=== PATIENT | male | born 1935 | race Caucasian/White ===

== ENCOUNTER 2020-04-05 05:31 | Emergency (ER) | payer MEDICARE, SELFPAY ==
--- NOTE | ~2020-04-05 | XR_ITS ---
XR chest 1V portable DATE: 04/05/2020 06:20 INDICATION: Shortness of breath TECHNIQUE: Portable AP views on 04/05/2020 at 0619 hours COMPARISON: 12/05/2019 AP and lateral chest 11/28/2019 CT chest FINDINGS: Status post sternotomy/coronary artery bypass graft surgery. Heart size is within normal ra nge. Pulmonary artery prominence is noted, best demonstrated on the left, consistent with pulmonary h ypertension. The lungs are moderately hyperinflated but clear of infiltrate or consolidation. No pleural effusion or pulmonary vascular congestion or pneumothorax is evident. Diffuse osteopenia. Chronic fracture deformity of a lower thoracic vertebral body, T11. IMPRESSION: Pulmonary hypertension Status post sternotomy/CABG Bilateral hyperinflation; no active pulmonary disease Reviewed, dictated and finalized at location [facility].
[2020-04-05 05:35] VITALS: BP 158/61; PULSE 75; RESP 20; TEMP 36.3; O2SAT 98
--- NOTE | 2020-04-05 05:40 | ED.SOB ---
HPI - SOB/Dyspnea General Chief Complaint: Shortness of Breath/Dyspnea Stated Complaint: SOB Time Seen by Provider: 04/05/20 05:40 History of Present Illness HPI Narrative: Awoke from sleep early this morning feeling very short of breath. His gave him a breathing treatment and symptoms improved. He is currently being treated for aspiration pneumonia. No fever, chest pain. Related Data Home Medications Medication Instructions Recorded Confirmed Centrum Silver Ultra Men's 1 tablet PO DAILY 11/25/19 11/25/19 PreserVision Lutein 1 cap PO BID 11/25/19 11/25/19 aspirin 81 mg PO DAILY 11/25/19 11/25/19 atorvastatin 20 mg PO HS 11/25/19 11/25/19 azelastine 2 spray INTRANASAL Q12H 11/25/19 11/25/19 benzonatate 100 mg PO TID PRN 11/25/19 11/25/19 brinzolamide 1 drp OPHTHALMIC (EYE) HS 11/25/19 11/25/19 bupropion HCl 150 mg PO BID 11/25/19 11/25/19 diphenhydramine-acetaminophen 1 tablet PO HS 11/25/19 11/25/19 [Tylenol PM Extra Strength] diphenoxylate-atropine 1 tablet PO TID PRN 11/25/19 11/25/19 dorzolamide-timolol [Cosopt] 1 drp OPHTHALMIC (EYE) BID 11/25/19 11/25/19 hydrochlorothiazide 12.5 mg PO DAILY 11/25/19 11/25/19 ipratropium bromide 2 spray INTRANASAL BID 11/25/19 11/25/19 latanoprost 1 drp OPHTHALMIC (EYE) QPM 11/25/19 11/25/19 lisinopril 5 mg PO DAILY 11/25/19 11/25/19 metoprolol tartrate 25 mg PO DAILY 11/25/19 11/25/19 omega [id number]-fish oil [Fish Oil] 3 cap PO BID 11/25/19 11/25/19 tramadol 50 mg PO Q6H PRN 11/25/19 11/25/19 trazodone 50 mg PO HS 11/25/19 11/25/19 warfarin 2 mg PO QMWF 11/25/19 11/25/19 warfarin 3 mg PO QTUTHSASU 11/25/19 11/25/19 Allergies Allergy/AdvReac Type Severity Reaction Status Date / Time Penicillins Allergy Unknown Verified 04/05/20 05:44 Review of Systems Review of Systems: All systems reviewed & are unremarkable except as noted in HPI and below Constitutional: Constitutional: Denies fever(s) Cardiovascular: Cardiovascular: Denies chest pain Respiratory: Respiratory: Reports cough, Reports dyspnea and Reports wheezing Gastrointestinal: Gastrointestinal: Denies abdominal pain [facility] Past Medical History Medical History (Updated 04/06/20 @ 00:00 by [facility] Daemhossein) Anxiety Atrial fibrillation Chronic kidney disease Coronary artery disease Status post stent and 3 vessel CABG. CVA (cerebrovascular accident) 2000. 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 Osteoarthritis Pneumonia Prostate cancer 2007. Status post radiation. Pulmonary hypertension Type 2 diabetes mellitus Surgical History Surgical History (Updated 11/25/19 @ 23:09 by Lizette Mancuso PA-C) History of coronary artery bypass graft x 3 2000. Status post abdominal aortic aneurysm repair Status post appendectomy Status post tonsillectomy Social History Social History (Updated 11/25/19 @ 20:35 by Lizette Mancuso PA-C) Social History: The patient lives in [place]. He designates his , Jazmyn, as his surrogate decision maker. He is listed as a full code. Smoking packs per day: 1 Smoking cigarettes per day: 20.0 Smoking status: Former smoker Tobacco type: cigarettes Second hand tobacco smoke exposure: Yes Alcohol intake: never Substance use: never Gender identity (if verbalized by the patient): Male Spiritual care concerns: No Agree to blood products: Yes Exam Const: Nutritional Appearance: thin Orientation/consciousness: patient oriented x3 Other: elderly HENMT: Head: normal to inspection Neck: Neck: normal visual inspection Resp: Effort & Inspection: normal respiratory effort Auscultation: wheezes (scattered) Cardio: Rate: regular rate Rhythm: abnormal rhythm irregularly irregular GI: GI Palp: Yes Soft to palpation and No Tenderness to palpation present (GI) Skin: General skin exam: normal color Neuro: General: patient oriented x3, moves all extremities, no focal motor deficits and CN's I
--- NOTE | 2020-04-05 05:41 | ECG_ITS ---
Measurements Intervals [place] Rate: 75 P: NC: 0 QRS: -38 QRSD: 110 T: 65 QT: 404 QTc: 452 Interpretive Statements ATRIAL FIBRILLATION LEFT AXIS DEVIATION DELAYED PRECORDIAL R/S TRANSITION BASELINE ARTIFACT- I, II, III, AVR, AVL, AVF ABNORMAL ECG Electronically Signed On 04-05-2020 7:30:13 CDT by Julio C Sifuentes D.O.
[2020-04-05] MEDS: ALBUTEROL SULFATE NEB 2.5 MG/0.5 ML INH 5 MG INHALATION (05:54)
[2020-04-05 05:57] LABS: Basophils Percent Auto 0.4 % (0.2-1.2); Eosinophils Absolute Auto 0.2 K/mm3 (0-0.3); Eosinophils Percent Auto 2.6 % (0-4.4); Hematocrit 36.7 % (42.0-52.0); Immature Granulocyte Absolute 0.03 K/mm3 (0.00-0.031); Immature Granulocyte Percent A 0.4 % (0-0.5); Lymphocytes Percent Auto 20.4 % (18.3-44.2); Mean Corpuscular HGB Conc 32.7 g/dl (32-36); Mean Corpuscular Hemoglobin 30.1 pg (26-34); Mean Platelet Volume 10.2 fl (7.4-10.4); Monocytes Percent Auto 13.3 % (2.6-8.5); Neutrophils Absolute Auto 4.9 K/mm3 (1.3-6.7); Neutrophils Percent Auto 62.9 % (45.5-73.1); Platelet Count Result 215 k/mm3 (150-375); Red Blood Count 3.99 M/mm3 (4.6-6.20); Red Cell Distribution Width 13.3 % (11.5-14.5); White Blood Count 7.8 K/mm3 (4.5-10.0)
[2020-04-05 05:58] VITALS: PULSE 63; RESP 14
[2020-04-05 06:05] VITALS: PULSE 74; RESP 20
[2020-04-05 06:09] LABS: Blood Urea Nitrogen 45 mg/dL (9-20); Calcium 9.4 mg/dL (8.4-10.2); Carbon Dioxide 23 mmol/L (22-30); Chloride 103 mmol/L (98-107); Estimated Glomerular Filt Rate 25; Glucose 122 mg/dL (75-110); Potassium 4.5 mmol/L (3.4-5.0); Sodium 136 mmol/L (137-145)
[2020-04-05 06:23] VITALS: BP 128/64; PULSE 72; RESP 18; O2SAT 99
[2020-04-05 07:00] VITALS: BP 134/69; PULSE 84; RESP 20; O2SAT 99
[2020-04-05 07:08] VITALS: BP 134/69; PULSE 84; RESP 20; O2SAT 99
== END 2020-04-05 07:10 | disposition home or self-care (01) ==
PROVIDERS: Emergency Provider Emergency Medicine; PCP Family Medicine
DX: R06.02 Shortness of breath (principal); I48.91 Unspecified atrial fibrillation; Z79.01 Long term (current) use of anticoagulants; I25.10 Atherosclerotic heart disease of native coronary artery without angina pectoris; Z86.73 Personal history of transient ischemic attack (TIA), and cerebral infarction without residual deficits; I12.9 Hypertensive chronic kidney disease with stage 1 through stage 4 chronic kidney disease, or unspecified chronic kidney disease; E11.22 Type 2 diabetes mellitus with diabetic chronic kidney disease; N18.9 Chronic kidney disease, unspecified; H40.9 Unspecified glaucoma; E78.5 Hyperlipidemia, unspecified; H35.30 Unspecified macular degeneration; M19.90 Unspecified osteoarthritis, unspecified site; Z85.46 Personal history of malignant neoplasm of prostate; Z92.3 Personal history of irradiation; I27.20 Pulmonary hypertension, unspecified; Z95.1 Presence of aortocoronary bypass graft; Z87.891 Personal history of nicotine dependence; Z79.82 Long term (current) use of aspirin
CPT/HCPCS: 36415; 71045; 80048; 85025; 87040; 93005; 94640; 99284

== ENCOUNTER 2020-08-25 00:24 | Outpatient (CLI) | payer MEDICARE, SELFPAY ==
[2020-08-25 19:00] LABS: SARS-CoV-2 RNA PCR Negative
== END 2020-08-25 00:25 | disposition home or self-care (01) ==
LOC: ANHCOVIDDT 00:25
PROVIDERS: PCP Family Medicine; Visit Provider Plastic Surgery
DX: Z01.812 Encounter for preprocedural laboratory examination (principal); Z20.828 Contact with and (suspected) exposure to other viral communicable diseases
CPT/HCPCS: 87635; C9803; U0003

== ENCOUNTER 2020-08-25 07:57 | Outpatient (CLI) | payer MEDICARE, SELFPAY ==
[2020-08-25 08:35] LABS: INR 1.1; Prothrombin Time 13.6 Seconds (11.1-14.7)
[2020-08-25 08:36] LABS: Partial Thromboplastin Time 27.7 SECONDS (22.3-36.8)
[2020-08-25 08:42] LABS: Anion Gap 9 mmol/L (8-16); Blood Urea Nitrogen 35 mg/dL (9-20); Calcium 9.6 mg/dL (8.4-10.2); Carbon Dioxide 33 mmol/L (22-30); Chloride 98 mmol/L (98-107); Estimated Glomerular Filt Rate 29; Glucose 115 mg/dL (75-110); Potassium 4.3 mmol/L (3.4-5.0); Sodium 140 mmol/L (137-145)
== END 2020-08-25 07:58 | disposition home or self-care (01) ==
LOC: ANHSURGERY 08:02
PROVIDERS: Anesthesiology; PCP Family Medicine; Visit Provider Plastic Surgery
DX: Z01.812 Encounter for preprocedural laboratory examination (principal); E11.9 Type 2 diabetes mellitus without complications; Z79.01 Long term (current) use of anticoagulants
CPT/HCPCS: 36415; 80048; 85610; 85730; 87635; C9803; U0003

== ENCOUNTER 2020-08-27 00:37 | Day surgery (SDC) | payer MEDICARE, SELFPAY ==
[2020-08-21 14:16] VITALS: BMI 20.1
[2020-08-27] MEDS: LACTATED RINGERS 1,000 ML 30 ML IV CONT (06:48)
[2020-08-27 06:50] VITALS: BP 182/79; PULSE 90; RESP 16; TEMP 36.8; O2SAT 98
--- NOTE | 2020-08-27 06:52 | WPDANESEPPF ---
Anes - Initial Pre Proc Eval Procedure: Operation Date: 08/27/20 07:30 Proposed Procedures p Re-Excision Squamous Cell Carcinoma Left Parietal Scalp With Frozen Section, Possible Full Thickness Skin Graft Or Local Tissue Transfer - Skyler Sarabia MD Date/Time: 08/27/20 06:52 Surgeon: Skyler Sarabia MD Pre Op Diagnosis: SCC Left Parietal Scalp Patient Data Age: 85 Gender: M Height: 5 ft 10 in Weight: 67.1 kg Last Vital Signs Temp 36.8 C 08/27/20 06:50 Pulse 90 08/27/20 06:50 Resp 16 08/27/20 06:50 BP 182/79 H 08/27/20 06:50 Pulse Ox 98 08/27/20 06:50 Allergies Allergy/AdvReac Type Severity Reaction Status Date / Time Penicillins Allergy Unknown Verified 08/27/20 06:07 Home Medications Medication Instructions Recorded Confirmed Type Centrum Silver Ultra Men's 1 tablet PO DAILY 11/25/19 08/21/20 History PreserVision Lutein 1 cap PO BID 11/25/19 08/21/20 History aspirin 81 mg PO DAILY 11/25/19 08/21/20 History atorvastatin 20 mg PO HS 11/25/19 08/21/20 History brinzolamide 1 drp OPHTHALMIC (EYE) HS 11/25/19 08/21/20 History bupropion HCl 150 mg PO BID 11/25/19 08/21/20 History diphenhydramine-acetaminophen 1 tablet PO HS 11/25/19 08/21/20 History [Tylenol PM Extra Strength] dorzolamide-timolol [Cosopt] 1 drp OPHTHALMIC (EYE) BID 11/25/19 08/21/20 History metoprolol tartrate 12.5 mg PO DAILY 11/25/19 08/21/20 History tramadol 50 mg PO Q6H PRN 11/25/19 08/21/20 History trazodone 100 mg PO HS 11/25/19 08/21/20 History warfarin 2 mg PO QMWF 11/25/19 08/21/20 History warfarin 3 mg PO QTUTHSASU 11/25/19 08/21/20 History glimepiride 0.5 mg PO DAILY #30 tablet 12/05/19 08/21/20 Rx nebulizers [Aeroneb Go Nebulizer] #1 each 12/05/19 Rx ascorbic acid (vitamin C) 1 g PO BID 08/21/20 08/21/20 History finasteride 5 mg PO QAM 08/21/20 08/21/20 History melatonin 20 mg PO HS 08/21/20 08/21/20 History Patient hx anesthesia problems: none Family hx anesthesia problems: none PMFSH Past Medical History Medical History Anxiety Atrial fibrillation Chronic kidney disease Coronary artery disease Status post stent and 3 vessel CABG. CVA (cerebrovascular accident) 2000. 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 Osteoarthritis Pneumonia Prostate cancer 2007. Status post radiation. Pulmonary hypertension Type 2 diabetes mellitus Surgical History Surgical History History of coronary artery bypass graft x 3 2000. Status post abdominal aortic aneurysm repair Status post appendectomy Status post tonsillectomy Family History Family History Father Acute myocardial infarction Congestive heart failure Mother Cerebrovascular accident Social History Social History Social History: The patient lives in [place]. He designates his , Jazmyn, as his surrogate decision maker. He is listed as a full code. Smoking packs per day: 1 Smoking cigarettes per day: 20.0 Years smoked: 45 Smoking pack-years: 45.00 Smoking status: Former smoker Tobacco type: cigarettes Second hand tobacco smoke exposure: Yes Smoking end date: 11/13/00 Alcohol intake: never Substance use: never Living arrangements: with family Gender identity (if verbalized by the patient): Male Spiritual care concerns: No Agree to blood products: Yes Anes - Eval Final PreProcedure Day of Procedure 08/27/20 06:52 Patient weight: normal Heart: regular rate and rhythm Lungs: decreased breath sounds Neurological: other (alert) Last oral intake: >/= 8 hours ASA classification: IV Emergent: no Anesthetic plan: proceed Anesthesia type and monitoring: general GIVS and standard monitoring Informed Consent: The patient's a
[2020-08-27 07:01] LABS: Glucose Point of Care 113 (65-105)
--- NOTE | 2020-08-27 07:17 | WPDHPUPDATE1 ---
History and Physical Update Update Date/Time: 08/27/20 07:17 History and Physical has been reviewed, including an updated exam of the patient. There are NO changes in the patient's condition. Risks, benefits, and alternatives have been discussed and questions answered. Patient agrees to proceed with procedure.
[2020-08-27] MEDS: LIDO 1%/EPINEPHRINE 1:100,000 20 ML VIAL INFILTRATE (07:54)
[2020-08-27] MEDS: BACITRACIN OINTMENT 15 GM TUBE 1 APPLIC TOPICAL (08:15)
[2020-08-27 08:23] VITALS: BP 136/69; PULSE 77; RESP 16; O2SAT 94
--- NOTE | 2020-08-27 08:28 | P.OPB_ITS ---
Procedure Note - Brief Procedure Note - Brief Date of procedure: 08/27/20 Pre-op diagnosis: SCC Left Parietal Scalp Post-op diagnosis: same Procedure performed: Reexcision of SCC of left parietal scalp for insufficient margins with LTT 16 sq cm. Anesthesia: MAC Surgeon: Skyler Sarabia MD Watcher Automat Long Goods: Colleen Estimated blood loss (mL): 2 Drains: No Packing: No Pathology: yes (Not FS) Complications: No immediate complications Condition: stable Disposition: same day
[2020-08-27 08:43] LABS: Glucose Point of Care 113 (65-105)
[2020-08-27 08:50] VITALS: BP 164/77; PULSE 76; RESP 16; O2SAT 95
[2020-08-27 09:20] VITALS: BP 173/70; PULSE 86; RESP 16
[2020-08-27 09:35] VITALS: BP 170/87; PULSE 86; RESP 16
--- NOTE | 2020-08-27 10:27 | P.OP_ITS ---
Procedure Note - Detailed Date of procedure: 08/27/20 Pre-op diagnosis: SCC Left Parietal Scalp Post-op diagnosis: same Procedure performed: History excision of squamous cell carcinoma of the scalp for insufficient margin 2 cm, FS and local tissue transfer total 16 sq cm Description of procedure: The site was marked on the patient's head in the holding area. He was taken to the operating room where he was placed supine on the operating table. Time-out was held and confirmed. He was given IV sedation. The site was carefully examined and marked for re-excision. This area was infiltrated with 1% lidocaine with epinephrine. The site was excised and sent for permanent section. The wound required a considerable undermining 100 the full width of the incision on all sides. Wound closure was accomplished with bilateral rotation flaps. There was no periosteum left at the base of this wound. The flaps were elevated and inset without significant tension and the wound closed with interrupted and running a 3-0 nylon suture. The wound was dressed with antibiotic ointment no gauze applied he is discharge instructions in wound care and follow-up he has a prescription for hydrocodone 5/325 8. Anesthesia: MAC Surgeon: Skyler Sarabia MD Television News Reporter: Colleen Estimated blood loss (mL): 2 Drains: No Packing: No Pathology: yes Complications: No immediate complications Condition: stable Disposition: same day
== END 2020-08-27 09:42 | disposition home or self-care (01) ==
PROVIDERS: PCP Family Medicine; Visit Provider Plastic Surgery
PROC: (CPT 14021; principal; 2020-08-27 07:30)
DX: C44.42 Squamous cell carcinoma of skin of scalp and neck (principal); I25.10 Atherosclerotic heart disease of native coronary artery without angina pectoris; I48.91 Unspecified atrial fibrillation; E78.5 Hyperlipidemia, unspecified; F41.9 Anxiety disorder, unspecified; I12.9 Hypertensive chronic kidney disease with stage 1 through stage 4 chronic kidney disease, or unspecified chronic kidney disease; N18.9 Chronic kidney disease, unspecified; E11.22 Type 2 diabetes mellitus with diabetic chronic kidney disease; F03.90 Unspecified dementia, unspecified severity, without behavioral disturbance, psychotic disturbance, mood disturbance, and anxiety; H40.9 Unspecified glaucoma; H35.30 Unspecified macular degeneration; Z85.46 Personal history of malignant neoplasm of prostate; Z95.1 Presence of aortocoronary bypass graft; Z87.891 Personal history of nicotine dependence; Z79.82 Long term (current) use of aspirin; Z79.84 Long term (current) use of oral hypoglycemic drugs; Z79.01 Long term (current) use of anticoagulants
CPT/HCPCS: 14021; 88305; A9270; J2704; J3010; J7120

== ENCOUNTER 2020-10-05 14:02 | Inpatient (IN) | payer MEDICARE, SELFPAY ==
--- NOTE | ~2020-10-05 | CT_ITS ---
EXAMINATION: CT abdomen pelvis wo con DATE: 10/08/2020 08:08 INDICATION: Hematuria TECHNIQUE: Computed tomography (CT) of the abdomen and pelvis was performed without intravenous contr ast. Automated exposure control and iterative reconstruction technique were employed. Exam dose: 253 .25 mGy-cm total exam DLP. COMPARISON: 12/04/2019 right upper quadrant abdominal ultrasound 06/08/2020 CT abdomen FINDINGS: There is mild atelectasis at the lung bases. Cardiomegaly. No pericardial or pleural effusi on. Multiple gallstones are evident. No gallbladder distention, gallbladder wall thickening or pericholec ystic fluid or fat stranding. No bile duct or pancreatic duct dilatation. No hepatic, splenic, pancreatic or adrenal space-occupying mass lesion. Approximately 2 cm exophytic right renal cyst. Approximately 3.2 cm exophytic left renal cyst. Approx imately 1.6 cm hypoattenuating lesion is suggested in the anterior aspect of the upper pole of the le ft kidney. Approximately 10 mm lateral upper pole right renal lesion is suggested. Additional renal m asses cannot be excluded on this limited noncontrast examination. Repeat examination with IV contrast material or MRI of the kidneys would be helpful to evaluate for any possible mass such as hypernephr altagracia that might be the source for the reported hematuria. There is diffuse thickening of the urinary bladder wall there is a small amount of air within the uri nary bladder likely due to instrumentation, with a Sandoval catheter in the bladder lumen. There is extensive calcification of the included descending thoracic aorta as well as the abdominal a magui and branches. There is an aortobiiliac endovascular stent. No intraperitoneal or retroperitoneal or pelvic mass lesion or adenopathy or ascites is noted otherwi se. Prominent amount of fecal material throughout the colon. No bowel obstruction is evident. Normal appe ndix. No intraperitoneal free air. Prominent burst fracture deformity of T11. Moderate anterior wedge compression fracture deformity of T12. Mild compression fracture deformity of L1. There is multilevel degenerative disc disease, particularly severe at L3-4, L4-5, with associated ret rolisthesis at L4-5. Severe degenerative changes of the apophyseal joints IMPRESSION: Diffuse thickening and urinary bladder wall; Sandoval catheter within bladder Bilateral renal cysts. Additional renal masses and/or cysts are suggested.. Further evaluation with I V contrast CT examination or MRI would be helpful for more definitive evaluation and to assess for ex clusion of any lesion such as hypernephroma, given the history of hematuria Cholelithiasis Cardiomegaly Multiple fracture deformities of the lower thoracic and lumbar spine Multilevel degenerative disc disease of the lumbar spine Reviewed, dictated and finalized at [facility]. Reviewed, dictated and finalized at location [facility]. SYSTEMS DEVELOPER IMPRESSION: Diffuse thickening and urinary bladder wall; Sandoval catheter within bladder Bilateral renal cysts. Additional renal masses and/or cysts are suggested.. Fur ther evaluation with IV contrast CT examination or MRI would be helpful for mor e definitive evaluation and to assess for exclusion of any lesion such as hyper nephroma, given the history of hematuria Cholelithiasis Cardiomegaly Multiple fracture deformities of the lower thoracic and lumbar spine Multilevel degenerative disc disease of the lumbar spine
--- NOTE | ~2020-10-05 | US_ITS ---
EXAMINATION: US renal BI DATE: 10/14/2020 16:13 INDICATION: Kidney masses. TECHNIQUE: Multiple ultrasound grayscale images of the kidneys were obtained. COMPARISON: CT abdomen and pelvis 10/08/2020, CT abdomen 06/08/2005, chest CT 11/28/19 FINDINGS: The right kidney measures 9.0 x 4.0 x 4.1 cm. The left kidney measures 9.0 x 4.9 x 4.9 cm. There is c ortical thinning of the kidneys. The kidneys demonstrate normal parenchymal echogenicity. There are c ysts in the kidneys measuring up to 3.3 cm on the left. There is no hydronephrosis. The bladder is de compressed. IMPRESSION: 1. Benign cysts in the kidneys. 2. Mild atrophy of the kidneys. Reviewed, dictated and finalized at location [facility]. OGRAPHIC STRIPPER
[2020-10-05 14:16] VITALS: BP 82/39; PULSE 87; RESP 15; TEMP 35.8; O2SAT 100
[2020-10-05 14:36] LABS: Basophils Percent Auto 0.2 % (0.2-1.2); Eosinophils Absolute Auto 0.2 K/mm3 (0-0.3); Eosinophils Percent Auto 1.9 % (0-4.4); Hematocrit 38.7 % (42.0-52.0); Hemoglobin 12.4 g/dL (14.0-18.0); Immature Granulocyte Absolute 0.05 K/mm3 (0.00-0.031); Immature Granulocyte Percent A 0.6 % (0-0.5); Lymphocytes Absolute Auto 1.23 K/mm3 (0.9-3.2); Lymphocytes Percent Auto 13.6 % (18.3-44.2); Mean Corpuscular Hemoglobin 28.5 pg (26-34); Mean Platelet Volume 10.3 fl (7.4-10.4); Monocytes Absolute Auto 0.7 K/mm3 (0.1-0.6); Monocytes Percent Auto 7.5 % (2.6-8.5); Neutrophils Absolute Auto 6.9 K/mm3 (1.3-6.7); Neutrophils Percent Auto 76.2 % (45.5-73.1); Platelet Count Result 194 k/mm3 (150-375); Red Blood Count 4.35 M/mm3 (4.6-6.20); Red Cell Distribution Width 15.6 % (11.5-14.5)
[2020-10-05 14:47] LABS: Alanine Aminotransferase 79 U/L (4-50); Albumin Level 3.8 g/dL (3.5-5.1); Alkaline Phosphatase 132 U/L (38-126); Anion Gap 10 mmol/L (8-16); Aspartate Amino Transferase 68 U/L (17-59); Bilirubin,Total 0.5 mg/dL (0.2-1.3); Blood Urea Nitrogen 43 mg/dL (9-20); Calcium 9.5 mg/dL (8.4-10.2); Carbon Dioxide 28 mmol/L (22-30); Chloride 104 mmol/L (98-107); Estimated CRCL calculation 19 ml/min; Estimated Glomerular Filt Rate 29; Glucose 122 mg/dL (75-110); Potassium 5.2 mmol/L (3.4-5.0); Sodium 142 mmol/L (137-145)
--- NOTE | 2020-10-05 15:25 | ED.GENADULT ---
HPI - General Adult General Chief complaint: Urogenital-Male Stated complaint: hematuria Time Seen by Provider: 10/05/20 15:02 Source: patient and family History of Present Illness HPI narrative: Patient is a 85 y/o male complaining of blood in urine for several days. He states that he had a catheter placed while in intermediate, but it was discontinued. The irrigation did help with hematuria. He had a scheduled appointment today in Dr. Shay' office. His urine still looked bloody and he was sent here to be admitted for further bladder irrigation. Related Data Home Medications Medication Instructions Recorded Confirmed Centrum Silver Ultra Men's 1 tablet PO DAILY 11/25/19 10/05/20 aspirin 81 mg PO DAILY 11/25/19 10/05/20 atorvastatin 20 mg PO HS 11/25/19 10/05/20 bupropion HCl 150 mg PO BID 11/25/19 10/05/20 dorzolamide-timolol [Cosopt] 1 drp OPHTHALMIC (EYE) BID 11/25/19 10/05/20 tramadol 50 mg PO Q6H PRN 11/25/19 10/05/20 trazodone 100 mg PO HS 11/25/19 10/05/20 melatonin 20 mg PO HS 08/21/20 10/05/20 ciprofloxacin HCl [Cipro] 500 mg PO Q12H 10/05/20 10/05/20 glimepiride 0.5 mg PO BID 10/05/20 10/05/20 metoprolol succinate 25 mg PO DAILY 10/05/20 10/05/20 peg 400-propylene glycol [Systane 1 drp OPHTHALMIC (EYE) HS 10/05/20 10/05/20 (propylene glycol)] Allergies Allergy/AdvReac Type Severity Reaction Status Date / Time Penicillins Allergy Unknown Verified 10/05/20 17:50 Review of Systems Constitutional: Constitutional: Denies chills, Denies fever(s), Denies headache(s) and Denies weakness Eyes: Eyes: Denies blurry vision ENT: Denies headache(s) and Denies neck pain Cardiovascular: Cardiovascular: Denies chest pain and Denies dyspnea Respiratory: Respiratory: Denies cough and Denies dyspnea Gastrointestinal: Gastrointestinal: Denies abdominal pain, Denies diarrhea, Denies nausea and Denies vomiting Genitourinary: Genitourinary: Reports hematuria and Denies dysuria Musculoskeletal: Musculoskeletal: Denies back pain and Denies neck pain Neurologic: Denies headache(s) and Denies weakness [facility] Past Medical History Medical History Anxiety Atrial fibrillation no longer on anticoagulation due to falls and hematuria Chronic kidney disease Coronary artery disease Status post stent and 3 vessel CABG. CVA (cerebrovascular accident) 2000. 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 Osteoarthritis Pneumonia Prostate cancer 2007. Status post radiation. Pulmonary hypertension Type 2 diabetes mellitus Surgical History Surgical History History of coronary artery bypass graft x 3 2000. Status post abdominal aortic aneurysm repair Status post appendectomy Status post tonsillectomy Family History Family History Father Acute myocardial infarction Congestive heart failure Mother Cerebrovascular accident Social History Social History Social History: The patient lives at a [facility] in [place]. He designates his , Jazmyn, as his surrogate decision maker. Former smoker Smoking packs per day: 1 Smoking cigarettes per day: 20.0 Years smoked: 45 Smoking pack-years: 45.00 Smoking status: Former smoker Tobacco type: cigarettes Second hand tobacco smoke exposure: Yes Smoking end date: 11/13/00 Alcohol intake: never Substance use: never Gender identity (if verbalized by the patient): Male Spiritual care concerns: No Agree to blood products: Yes Exam Const: General: no acute distress and ill appearing Orientation/consciousness: oriented to person, oriented to place and confusion HENMT: Head: normocephalic Ears: external ears normal General nose exam: Normal external nose present Eyes: Gener
[2020-10-05 15:59] LABS: Prothrombin Time 13.6 Seconds (11.1-14.7)
[2020-10-05 16:00] LABS: Partial Thromboplastin Time 25.5 SECONDS (22.3-36.8)
[2020-10-05 16:04] VITALS: BP 126/73; PULSE 73; RESP 18; O2SAT 98
[2020-10-05] MEDS: LIDOCAINE HCL 2% GEL UROJET 10 ML PKG (16:04)
--- NOTE | 2020-10-05 16:05 | PM.IMHP ---
H&P: HPI History of Present Illness Date/Time: 10/05/20 16:05 Chief complaint: hematuria Narrative: Antelmo Christianson is a 85 year old male with a past medical history of AFib ( not on anticoagulation), type 2 diabetes, dementia, and distant history of prostate cancer who presented emergency room for hematuria. The patient's states that he has been in a long-term and they called her on Monday due to hematuria. She reports that they put a Sandoval in but he continued to bleed. They already had an appointment with Urology today so he followed up with them. He continues to have hematuria despite the Cipro he was started on at the long-term. I spoke with the urology SECTION SUPERVISOR, Giselle, who states they did a UA in the office which looks suspicious for UTI. The patient has dementia and is unable to provide much of a history. He does not remember when the hematuria started and does not have any pain with urination. He reports no chest pain, shortness of breath, fevers, chills, abdominal pain, nausea, vomiting, leg swelling, cough or previous history of COVID-19. Review of Systems Review of Systems: All systems reviewed & are unremarkable except as noted in HPI and below PMFSH Past Medical History Medical History (Updated 10/05/20 @ 16:10 by Kori Childers PA-C) Anxiety Atrial fibrillation no longer on anticoagulation due to falls and hematuria Chronic kidney disease Coronary artery disease Status post stent and 3 vessel CABG. CVA (cerebrovascular accident) 2000. 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 Osteoarthritis Pneumonia Prostate cancer 2007. Status post radiation. Pulmonary hypertension Type 2 diabetes mellitus Surgical History Surgical History History of coronary artery bypass graft x 3 2000. Status post abdominal aortic aneurysm repair Status post appendectomy Status post tonsillectomy Family History Family History Father Acute myocardial infarction Congestive heart failure Mother Cerebrovascular accident Social History Social History (Updated 10/05/20 @ 16:13 by Kori Childers PA-C) Social History: The patient lives at a [place] in [place]. He designates his , Jazmyn, as his surrogate decision maker. Former smoker Smoking packs per day: 1 Smoking cigarettes per day: 20.0 Years smoked: 45 Smoking pack-years: 45.00 Smoking status: Former smoker Tobacco type: cigarettes Second hand tobacco smoke exposure: Yes Smoking end date: 11/13/00 Alcohol intake: never Substance use: never Gender identity (if verbalized by the patient): Male Spiritual care concerns: No Agree to blood products: Yes Meds Home Medications and Allergies Home Medications Medication Instructions Recorded Confirmed Type Centrum Silver Ultra Men's 1 tablet PO DAILY 11/25/19 08/21/20 History PreserVision Lutein 1 cap PO BID 11/25/19 08/21/20 History aspirin 81 mg PO DAILY 11/25/19 08/21/20 History atorvastatin 20 mg PO HS 11/25/19 08/21/20 History brinzolamide 1 drp OPHTHALMIC (EYE) HS 11/25/19 08/21/20 History bupropion HCl 150 mg PO BID 11/25/19 08/21/20 History diphenhydramine-acetaminophen 1 tablet PO HS 11/25/19 08/21/20 History [Tylenol PM Extra Strength] dorzolamide-timolol [Cosopt] 1 drp OPHTHALMIC (EYE) BID 11/25/19 08/21/20 History metoprolol tartrate 12.5 mg PO DAILY 11/25/19 08/21/20 History tramadol 50 mg PO Q6H PRN 11/25/19 08/21/20 History trazodone 100 mg PO HS 11/25/19 08/21/20 History glimepiride 0.5 mg PO DAILY #30 tablet 12/05/19 08/21/20 Rx nebulizers [Aeroneb Go Nebulizer] #1 each 12/05/19 Rx ascorbic acid (vitamin C) 1 g PO BID 08/21/20 08/21/20 History finasteride 5 mg PO QAM 08/21/20 08/21/20 History melatonin 20 mg PO HS 08/21/20 08/21/20 History Allergies Allergy/AdvReac Type S
[2020-10-05 16:25] LABS: Add Urine Microscopic? YES; Appearance Urine Cloudy (Clear); Bilirubin Urine Negative (Negative); Blood Urine 3+ (Negative); Color Urine Straw (Yellow); Glucose Urine UA Negative (Negative); Ketones Urine Negative (Negative); Leukocyte Esterase Ur Trace LEU/UL (Negative); Nitrate Urine Negative (Negative); Protein Urine 1+ mg/dL (Negative); RBC Urine >75 /hpf (0-2); Specific Grav Ur 1.008 (1.001-1.035); Urobilinogen Urine Negative mg/dL (<2.0)
[2020-10-05 16:45] VITALS: BP 158/77; PULSE 87; RESP 16; O2SAT 97
[2020-10-05 17:32] VITALS: BP 127/66; PULSE 78; RESP 18; TEMP 36.1; O2SAT 100
--- NOTE | 2020-10-05 17:46 | ADMGEN ---
This patient, Antelmo Christianson, was admitted to Medical Room 247-. Patient/family oriented to hospital policies and general routines including ID bracelet, bed and alarms, visiting hours, pain management, procedures, bathroom and other care routines, personal items, smoking policy, room service/diet, and visiting hours. Information on how to activate the Rapid Response Team has been discussed. Patient/Family are encouraged to report perceived risks to care and to ask questions if they do not understand what they are told or what they should do.
[2020-10-05 18:00] VITALS: BMI 17.0
[2020-10-05] MEDS: LACTATED RINGERS 1,000 ML 75 ML IV CONT (18:19)
[2020-10-05 18:38] LABS: Glucose Point of Care 101 (65-105)
[2020-10-05 21:21] LABS: Hematocrit 35.6 % (42.0-52.0); Hemoglobin 11.5 g/dL (14.0-18.0)
[2020-10-05 22:00] VITALS: BP 133/49; PULSE 83; RESP 20; TEMP 37.2; O2SAT 99
[2020-10-06 05:56] LABS: Hematocrit 33.9 % (42.0-52.0)
[2020-10-06 06:00] VITALS: BP 142/78; PULSE 110; RESP 18; TEMP 36.6; O2SAT 95
[2020-10-06 06:10] LABS: Alanine Aminotransferase 61 U/L (4-50); Albumin Level 3.3 g/dL (3.5-5.1); Alkaline Phosphatase 120 U/L (38-126); Anion Gap 6 mmol/L (8-16); Aspartate Amino Transferase 44 U/L (17-59); Bilirubin,Total 0.6 mg/dL (0.2-1.3); Blood Urea Nitrogen 43 mg/dL (9-20); Calcium 8.7 mg/dL (8.4-10.2); Carbon Dioxide 30 mmol/L (22-30); Chloride 102 mmol/L (98-107); Estimated CRCL calculation 20 ml/min; Estimated Glomerular Filt Rate 30; Glucose 127 mg/dL (75-110); Potassium 4.5 mmol/L (3.4-5.0); Sodium 138 mmol/L (137-145)
--- NOTE | 2020-10-06 08:43 | WPDURCON ---
Assessment and Plan Assessment and plan (1) Hematuria: Code(s): R31.9 - Hematuria, unspecified Status: Acute Assessment and Plan: Will plan to do a CT with and without contrast when Creatinine returns to baseline. 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 Keep CBI off as urine is clear at this time off CBI. Will plan to do a voiding trial prior to discharge. (2) Prostate cancer: Code(s): C61 - Malignant neoplasm of prostate Status: Acute (3) History of prostate cancer: Code(s): Z85.46 - Personal history of malignant neoplasm of prostate Status: Acute Urology Consult Note HPI Date Seen: 10/06/20 Requesting Physician: Kori Childers PA-C Primary Care Provider: Amanda Garcia, Consult Narrative Narrative: Antelmo Christianson is a 85 year old male who was sent to the ER from our office yesterday. I saw him in the early afternoon for an appointment d/t gross hematuria x 5 days according to his . He was given Ciprofloxacin 500mg BID since 09/29/2020, but no improvement was noted. He had to be straight cath'ed for a sample yesterday, which was bloody. He had severe amounts of gross hematuria from the urethral meatus. His UA was suspicious of a UTI, a culture was sent from the office. The culture from the hospital is also pending. His WBC is stable at 9.0, creatinine is slightly elevated at 2.10 but down from 2.20 after cardona placement. He had a 3 way cardona placed and CBI was running. It is stopped this morning and urine is clear. He is currently getting Ceftriaxone. He is demented and unable to provide a medical history, his was my source of information. Review of Systems Review of Systems: ROS unobtainable: Yes unobtainable due to mental status [facility] Past Medical History Medical History Anxiety Atrial fibrillation no longer on anticoagulation due to falls and hematuria Chronic kidney disease Coronary artery disease Status post stent and 3 vessel CABG. CVA (cerebrovascular accident) 2000. 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 Osteoarthritis Pneumonia Prostate cancer 2007. Status post radiation. Pulmonary hypertension Type 2 diabetes mellitus Surgical History Surgical History History of coronary artery bypass graft x 3 2000. Status post abdominal aortic aneurysm repair Status post appendectomy Status post tonsillectomy Family History Family History Father Acute myocardial infarction Congestive heart failure Mother Cerebrovascular accident Social History Social History Social History: The patient lives at a [place] in [place]. He designates his , Jazmyn, as his surrogate decision maker. Former smoker Smoking packs per day: 1 Smoking cigarettes per day: 20.0 Years smoked: 45 Smoking pack-years: 45.00 Smoking status: Former smoker Tobacco type: cigarettes Second hand tobacco smoke exposure: Yes Smoking end date: 11/13/00 Alcohol intake: never Substance use: never Gender identity (if verbalized by the patient): Male Spiritual care concerns: No Agree to blood products: Yes Meds Home Medications and Allergies Home Medications Medication Instructions Recorded Confirmed Type Centrum Silver Ultra Men's 1 tablet PO DAILY 11/25/19 10/05/20 History aspirin 81 mg PO DAILY 11/25/19 10/05/20 History atorvastatin 20 mg PO HS 11/25/19 10/05/20 History bupropion HCl 150 mg PO BID 11/25/19 10/05/20 History dorzolamide-timolol [Cosopt] 1 drp OPHTHALMIC (EYE) BID 11/25/19 10/05/20 History tramadol 50 mg PO Q6H PRN 11/25/19 10/05/20 History trazodone 100 mg PO HS 11/25/19 10/05/20 History melatonin 20 mg PO HS 08/21/20 10/05/20 History ciprofloxacin HC
[2020-10-06 10:04] VITALS: BMI 17.0
--- NOTE | 2020-10-06 10:12 | PM.IMPN ---
Progress Note: A&P Assessment and Plan (1) Hematuria: Code(s): R31.9 - Hematuria, unspecified Status: Acute Assessment and Plan: Hematuria noted at senior care since Monday -currently on CBI with clear urine, will likely be slowed or stopped today -UA suspicious for UTI, continue ceftriaxone and await cultures -Urology consult and their note was reviewed -Hold aspirin (2) History of prostate cancer: Code(s): Z85.46 - Personal history of malignant neoplasm of prostate Status: Acute Assessment and Plan: Hx of prostate cancer around 2007 with no known reoccurrence according to - treated with radiation (3) Transaminitis: Code(s): R74.0 - Nonspecific elevation of levels of transaminase and lactic acid dehydrogenase [LDH] Status: Acute Assessment and Plan: chronic - follow-up outpatient (4) Hypotension: Code(s): I95.9 - Hypotension, unspecified Status: Acute Assessment and Plan: noted on admission -resolved, will stop IV fluids (5) Type 2 diabetes mellitus: Qualifiers: Diabetes mellitus terminal operations supervisor insulin use: without terminal operations supervisor use Diabetes mellitus complication status: without complication Qualified Code(s): E11.9 - Type 2 diabetes mellitus without complications Code(s): E11.9 - Type 2 diabetes mellitus without complications Status: Acute Assessment and Plan: last glucose 127 - continue sliding scale insulin and hypoglycemia protocol (6) Atrial fibrillation: Qualifiers: Atrial fibrillation type: unspecified Qualified Code(s): I48.91 - Unspecified atrial fibrillation Code(s): I48.91 - Unspecified atrial fibrillation Status: Acute Assessment and Plan: chronic -continue metoprolol -not on anticoagulation due to hematuria and falls (7) Dementia: Code(s): F03.90 - Unspecified dementia without behavioral disturbance Status: Acute Assessment and Plan: chronic - now lives in a senior care, continue PT and OT (8) Hemorrhagic cystitis: Code(s): N30.91 - Cystitis, unspecified with hematuria Status: Acute Assessment and Plan: Likely diagnosis given above -await urine cultures -no abdominal pain -urology recommend CT scan if creatinine improves with contrast. May have to consider getting it without contrast since the patient has chronic kidney disease (9) Chronic kidney disease: Qualifiers: Chronic kidney disease stage: stage 3 (moderate) Qualified Code(s): N18.3 - Chronic kidney disease, stage 3 (moderate) Code(s): N18.9 - Chronic kidney disease, unspecified Status: Acute Assessment and Plan: Chronic and at baseline Time Spent With Patient Time with patient: 25 - 35 minutes Subjective Date/time seen: 10/06/20 10:12 Interval history: Pt is a 85-year-old male here for hematuria. Patient was seen today early in the morning and was sleeping. He woke up easily but did not want to answer many of my questions. He does get telling me he was tired and wanted to go back to sleep. He did, however, say he did not have any chest pain, abdominal pain and that he was not hungry Review of Systems Review of Systems: All systems reviewed & are unremarkable except as noted in HPI and below Exam Narrative: Exam Narrative: General: frail elderly patient resting comfortably in bed in no acute distress HEENT: Normocephalic, atraumatic, chronic ocular changes in the right eye Neck: Supple Resp: CTA Heart: RRR Abd: Soft, nontender. No pain to palpation. Positive bowel sounds Skin: Warm and dry Extremities: No swelling, erythema or pain to palpation Neuro: Alert and Oriented to himself, location but not the year, president or where he lived . CN 2-12 intact. No focal neurological deficits. : Sandoval catheter with few clots and very light pink appearance. Objec
[2020-10-06 10:36] VITALS: PULSE 80
[2020-10-06] MEDS: METOPROLOL SUCCINATE EXT REL 25 MG TABCR PO (10:36)
[2020-10-06] MEDS: DORZOLAMIDE/TIMOLOL OPHTH SOL 10 ML BOTTLE 1 DROP EACH EYE ×2 (10:36→20:29)
[2020-10-06 13:07] LABS: Glucose Point of Care 126 (65-105)
[2020-10-06 14:00] VITALS: BP 107/59; PULSE 92; RESP 14; TEMP 36.9; O2SAT 99
[2020-10-06 18:35] LABS: Glucose Point of Care 136 (65-105)
[2020-10-06] MEDS: ATORVASTATIN 20 MG TABLET PO (20:29)
[2020-10-06] MEDS: traZODone HCL 50 MG TABLET 100 MG PO (20:29)
[2020-10-06] MEDS: MELATONIN 5 MG TABLET 20 MG PO (20:29)
[2020-10-06 21:12] VITALS: BP 117/53; PULSE 80; RESP 16; TEMP 36.5; O2SAT 100
[2020-10-07 01:03] LABS: Glucose Point of Care 133 (65-105)
[2020-10-07 05:35] VITALS: BP 113/55; PULSE 98; RESP 20; TEMP 36.2; O2SAT 98
[2020-10-07 05:39] LABS: Hematocrit 29.9 % (42.0-52.0); Hemoglobin 9.6 g/dL (14.0-18.0); Mean Corpuscular HGB Conc 32.1 g/dl (32-36); Mean Corpuscular Hemoglobin 28.2 pg (26-34); Mean Corpuscular Volume 87.9 fl (80-100); Mean Platelet Volume 10.5 fl (7.4-10.4); Platelet Count Result 170 k/mm3 (150-375); Red Cell Distribution Width 15.5 % (11.5-14.5); White Blood Count 8.7 K/mm3 (4.5-10.0)
[2020-10-07 05:58] LABS: Anion Gap 6 mmol/L (8-16); Blood Urea Nitrogen 40 mg/dL (9-20); Calcium 8.5 mg/dL (8.4-10.2); Carbon Dioxide 31 mmol/L (22-30); Chloride 104 mmol/L (98-107); Estimated CRCL calculation 20 ml/min; Estimated Glomerular Filt Rate 30; Glucose 130 mg/dL (75-110); Sodium 141 mmol/L (137-145)
[2020-10-07 07:50] LABS: Glucose Point of Care 133 (65-105)
[2020-10-07] MEDS: METOPROLOL SUCCINATE EXT REL 25 MG TABCR PO (07:50)
[2020-10-07] MEDS: DORZOLAMIDE/TIMOLOL OPHTH SOL 10 ML BOTTLE 1 DROP EACH EYE ×2 (07:52→20:35)
--- NOTE | 2020-10-07 09:27 | PM.IMPN ---
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 -plan for CT scan of the abdomen/pelvis -spoke with Urology about plan of care -Hold aspirin (2) History of prostate cancer: Code(s): Z85.46 - Personal history of malignant neoplasm of prostate Status: Acute Assessment and Plan: Hx of prostate cancer around 2007 with no known reoccurrence according to - treated with radiation (3) Transaminitis: Code(s): R74.0 - Nonspecific elevation of levels of transaminase and lactic acid dehydrogenase [LDH] Status: Acute Assessment and Plan: chronic - follow-up outpatient (4) Hypotension: Code(s): I95.9 - Hypotension, unspecified Status: Acute Assessment and Plan: noted on admission -resolved, IV fluids have been stopped (5) Type 2 diabetes mellitus: Qualifiers: Diabetes mellitus extermination supervisor insulin use: without detention use Diabetes mellitus complication status: without complication Qualified Code(s): E11.9 - Type 2 diabetes mellitus without complications Code(s): E11.9 - Type 2 diabetes mellitus without complications Status: Acute Assessment and Plan: last glucose 133 - continue sliding scale insulin and hypoglycemia protocol (6) Atrial fibrillation: Qualifiers: Atrial fibrillation type: unspecified Qualified Code(s): I48.91 - Unspecified atrial fibrillation Code(s): I48.91 - Unspecified atrial fibrillation Status: Acute Assessment and Plan: chronic -continue metoprolol -not on anticoagulation due to hematuria and falls (7) Dementia: Code(s): F03.90 - Unspecified dementia without behavioral disturbance Status: Acute Assessment and Plan: chronic - now lives in a [facility], continue PT and OT (8) Chronic kidney disease: Qualifiers: Chronic kidney disease stage: stage 3 (moderate) Qualified Code(s): N18.3 - Chronic kidney disease, stage 3 (moderate) Code(s): N18.9 - Chronic kidney disease, unspecified Status: Acute Assessment and Plan: Chronic and at baseline Time Spent With Patient Time with patient: 25 - 35 minutes Subjective Date/time seen: 10/07/20 09:27 Interval history: Pt is a 85-year-old male here for hematuria. Patient was seen today and doing well. He has no complaints at this time. He specifically denies chest pain, shortness of breath, fevers, chills, abdominal pain, nausea, vomiting or leg swelling. He is ready for breakfast and is hungry. He is eating and drinking okay. Review of Systems Review of Systems: All systems reviewed & are unremarkable except as noted in HPI and below Exam Narrative: Exam Narrative: General: frail elderly patient resting comfortably in bed in no acute distress HEENT: Normocephalic, atraumatic, chronic ocular changes in the right eye Neck: Supple Resp: CTA Heart: RRR Abd: Soft, nontender. No pain to palpation. Positive bowel sounds Skin: Warm and dry Extremities: No swelling, erythema or pain to palpation Neuro: Alert and Oriented to himself, location but not the year, president or where he lived--baseline. CN 2-12 intact. No focal neurological deficits. : Sandoval catheter with red urine and few clots Objective Data Vital Signs Vital Signs: Vital Signs - 24 hr 10/06/20 10:36 10/06/20 14:00 10/06/20 21:12 Temperature 98.5 F 97.7 F Pulse Rate 80 92 80 Respiratory Rate 14 16 Blood Pressure 107/59 L 117/53 L Pulse Oximetry 99 100 10/07/20 05:35 Temperature 97.1 F L Pulse Rate 98 Respiratory Rate 20 Blood Pressure 113/55 L
--- NOTE | 2020-10-07 11:34 | WPDUROPN2 ---
Progress Note: A&P Assessment and Plan (1) Gross hematuria: Code(s): R31.0 - Gross hematuria Status: Acute Assessment and Plan: Sandoval was irrigated with 180cc of NS this morning without difficulty. Urine did clear to a light pink color and several small clots were removed. Continue CBI until urine is clear, then wean to off. Urine culture was negative, may stop antibiotics. 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 (2) History of prostate cancer: Code(s): Z85.46 - Personal history of malignant neoplasm of prostate Status: Acute Subjective Subjective Date/Time Seen: 10/07/20 11:34 Patient's urine remains bloody today on CBI, with small clots. Review of Systems Cardiovascular: Cardiovascular: Reports no additional cardiovascular complaints Respiratory: Respiratory: Reports no additional respiratory complaints Gastrointestinal: Gastrointestinal: Denies abdominal pain, Denies nausea and Denies vomiting Genitourinary: Genitourinary: Reports hematuria Exam Resp: Effort & Inspection: normal respiratory effort Cardio: Rate: regular rate GI: GI Palp: No Soft to palpation and No Tenderness to palpation present (GI) Urinary Catheter: Urinary Catheter: patent and draining, urine red and urine with clots Extrem: Right upper extremity: no edema Objective Data Vital Signs Vital Signs: Vital Signs - 24 hr 10/06/20 14:00 10/06/20 21:12 10/07/20 05:35 Temperature 98.5 F 97.7 F 97.1 F L Pulse Rate 92 80 98 Respiratory Rate 14 16 20 Blood Pressure 107/59 L 117/53 L 113/55 L Pulse Oximetry 99 100 98 Intake/Output Intake/Output: Intake & Output 10/04/20 10/05/20 10/06/20 10/07/20 23:59 23:59 23:59 23:59 Intake Total 50 1600 580 Output Total 1075 1100 Balance 50 525 -520 Meds/Results Medications: Active Medications Generic Name Dose Route Start Last Admin Trade Name Freq PRN Reason Stop Dose Admin Artificial Tears 1 drop 10/06/20 21:00 10/06/20 20:29 Artificial Tears Op Soln 15 Ml Bottle EACH EYE 1 drop HS ELIA Administration Atorvastatin Calcium 20 mg 10/06/20 21:00 10/06/20 20:29 Atorvastatin 20 Mg Tablet PO 20 mg HS ELIA Administration Bupropion HCl 150 mg 10/06/20 09:00 10/07/20 07:50 Bupropion Hcl Sr (12hr) 150 Mg Tab PO 150 mg Q12HR ELIA Administration Dextrose 12.5 gm 10/05/20 16:35 Dextrose 50% 25 Gm/50 Ml Syringe IV PUSH PRN PRN Hypoglycemia Protocol Dorzolamide/Timolol 1 drop 10/06/20 09:00 10/07/20 07:52 Dorzolamide/Timolol Ophth Kenyatta 10 Ml Bottle EACH EYE 1 drop Q12HR ELIA Administration Glucagon 1 mg 10/05/20 16:35 Glucagon For Inj 1 Mg Vial IM PRN PRN Hypoglycemia Protocol Glucose 15 gm 10/05/20 16:35 Glucose Oral Gel 15 Gm Of Glucse In 37.5 Gm Tube PO PRN PRN Hypoglycemia Protocol Dextrose 1,000 mls @ 100 mls/hr 10/05/20 16:35 Dextrose 5% 1,000 Ml IVPB PRN PRN Hypoglycemia Protocol Insulin Aspart 2 - 5 units 10/05/20 17:00 10/07/20 07:46 Insulin Aspart (*Bkc) 100 Units/Ml SUB-Q Not Given TIDWM ELIA Protocol Melatonin 20 mg 10/06/20 21:00 10/06/20 20:29 Melatonin 5 Mg Tablet PO 20 mg HS ELIA Administration Metoprolol Succinate 25 mg 10/06/20 09:00 10/07/20 07:50 Metoprolol Succinate Ext Rel 25 Mg Tabcr PO 25 mg DAILY ELIA Administration Tramadol HCl 50 mg 10/06/20 06:50 Tramadol Hcl (*Crx) 50 Mg Tablet PO Q6H PRN Pain Trazodone HCl 100 mg 10/06/20 21:00 10/06/20 20:29 Trazodone Hcl 50 Mg Tablet PO 100 mg HS ELIA Administration Labs Labs: Laboratory Results - last 24 hr 10/06/20 10/06/20 10/06/20 12:05 17:14 20:28 WBC RBC Hgb Hct MCV MCH MCHC RDW Plt Count MPV Sodium Potassium Chloride Carbon Dioxide Anion Gap BUN Creatinine Est
[2020-10-07 12:11] LABS: Glucose Point of Care 158 (65-105)
[2020-10-07 14:00] VITALS: BP 98/50; PULSE 67; RESP 20; TEMP 36.4; O2SAT 98
--- NOTE | 2020-10-07 15:12 | PCDIET ---
Nutrition Follow-Up Complete: Nutrition Diagnosis: Inadequate Oral Intake as related to hematuria as evidenced by poor po intake. Nutrition Goal: Meet estimated nutritional needs. Goal met. Patient consuming 75-100% of meals now on diabetic diet with Glucerna Shake BID. No new recommendations at this time. Last recorded weight is 58.6 kg. Recommend obtaining new weight. Bowel Motility: No documented BM. Suggest consideration of medication for BM if no BM in 24 hours. Labs Reviewed: Hgb (9.6), Hct (29.9), Glu (130), BUN (40), Cr (2.1) Meds Noted: Lipitor, Novolog, Toprol XL Additional Notes: No documented skin breakdown. Will continue to monitor with same goal. Nutrition Monitoring and Evaluation: Will follow up every 5 days.
[2020-10-07 18:01] LABS: Glucose Point of Care 134 (65-105)
[2020-10-07] MEDS: ATORVASTATIN 20 MG TABLET PO (20:35)
[2020-10-07] MEDS: traZODone HCL 50 MG TABLET 100 MG PO (20:35)
[2020-10-07] MEDS: MELATONIN 5 MG TABLET 20 MG PO (20:35)
[2020-10-07 20:53] LABS: Glucose Point of Care 163 (65-105)
[2020-10-07 21:15] LABS: SARS-CoV-2 RNA PCR Negative
[2020-10-07 22:00] VITALS: BP 100/79; PULSE 66; RESP 18; TEMP 36.5; O2SAT 97
[2020-10-08 05:59] LABS: Hemoglobin 9.7 g/dL (14.0-18.0); Mean Corpuscular HGB Conc 32.3 g/dl (32-36); Mean Corpuscular Hemoglobin 28.1 pg (26-34); Mean Platelet Volume 10.6 fl (7.4-10.4); Platelet Count Result 169 k/mm3 (150-375); Red Blood Count 3.45 M/mm3 (4.6-6.20); Red Cell Distribution Width 15.5 % (11.5-14.5); White Blood Count 9.4 K/mm3 (4.5-10.0)
[2020-10-08 06:00] VITALS: BP 146/87; PULSE 71; RESP 20; TEMP 36.2; O2SAT 96
[2020-10-08 06:04] LABS: Alanine Aminotransferase 47 U/L (4-50); Albumin Level 2.8 g/dL (3.5-5.1); Alkaline Phosphatase 100 U/L (38-126); Anion Gap 3 mmol/L (8-16); Aspartate Amino Transferase 38 U/L (17-59); Bilirubin,Total 0.4 mg/dL (0.2-1.3); Blood Urea Nitrogen 44 mg/dL (9-20); Carbon Dioxide 31 mmol/L (22-30); Chloride 102 mmol/L (98-107); Estimated CRCL calculation 18 ml/min; Estimated Glomerular Filt Rate 27; Glucose 127 mg/dL (75-110); Potassium 4.2 mmol/L (3.4-5.0); Sodium 136 mmol/L (137-145)
[2020-10-08 07:48] LABS: Glucose Point of Care 165 (65-105)
[2020-10-08 08:16] VITALS: PULSE 71
[2020-10-08] MEDS: METOPROLOL SUCCINATE EXT REL 25 MG TABCR PO (08:16)
[2020-10-08] MEDS: DORZOLAMIDE/TIMOLOL OPHTH SOL 10 ML BOTTLE 1 DROP EACH EYE ×2 (08:16→21:02)
--- NOTE | 2020-10-08 09:12 | PM.IMPN ---
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 -plan for CT scan of the abdomen/pelvis -Hold aspirin (2) History of prostate cancer: Code(s): Z85.46 - Personal history of malignant neoplasm of prostate Status: Acute Assessment and Plan: Hx of prostate cancer around 2007 with no known reoccurrence according to - treated with radiation (3) Transaminitis: Code(s): R74.0 - Nonspecific elevation of levels of transaminase and lactic acid dehydrogenase [LDH] Status: Acute Assessment and Plan: chronic - follow-up outpatient (4) Hypotension: Code(s): I95.9 - Hypotension, unspecified Status: Acute Assessment and Plan: noted on admission -resolved, IV fluids have been stopped (5) Type 2 diabetes mellitus: Qualifiers: Diabetes mellitus fpc insulin use: without buttermaker use Diabetes mellitus complication status: without complication Qualified Code(s): E11.9 - Type 2 diabetes mellitus without complications Code(s): E11.9 - Type 2 diabetes mellitus without complications Status: Acute Assessment and Plan: last glucose 165 - continue sliding scale insulin and hypoglycemia protocol (6) Atrial fibrillation: Qualifiers: Atrial fibrillation type: unspecified Qualified Code(s): I48.91 - Unspecified atrial fibrillation Code(s): I48.91 - Unspecified atrial fibrillation Status: Acute Assessment and Plan: chronic, normal sinus rhythm for me today -continue metoprolol -not on anticoagulation due to hematuria and falls (7) Dementia: Code(s): F03.90 - Unspecified dementia without behavioral disturbance Status: Acute Assessment and Plan: chronic - [facility], continue PT and OT (8) Chronic kidney disease: Qualifiers: Chronic kidney disease stage: stage 3 (moderate) Qualified Code(s): N18.3 - Chronic kidney disease, stage 3 (moderate) Code(s): N18.9 - Chronic kidney disease, unspecified Status: Acute Assessment and Plan: Chronic and at baseline Subjective Date/time seen: 10/08/20 09:12 Interval history: Pt is a 85-year-old male here for hematuria. Patient was seen today and doing well. He has no complaints at this time. He specifically denies chest pain, shortness of breath, fevers, chills, abdominal pain, nausea, vomiting or leg swelling. He is ready for breakfast and is hungry. He is eating and drinking okay. Exam Narrative: Exam Narrative: General: frail elderly patient resting comfortably in bed in no acute distress HEENT: Normocephalic, atraumatic, chronic ocular changes in the right eye Neck: Supple Resp: CTA Heart: RRR Abd: Soft, nontender. No pain to palpation. Positive bowel sounds Skin: Warm and dry Extremities: No swelling, erythema or pain to palpation Neuro: Alert and Oriented to himself, location but not the year, president or where he lived--baseline. CN 2-12 intact. No focal neurological deficits. : Sandoval catheter with light pink urine and no clots seen Objective Data Vital Signs Vital Signs: Vital Signs - 24 hr 10/07/20 14:00 10/07/20 22:00 10/08/20 06:00 Temperature 97.5 F L 97.7 F 97.2 F L Pulse Rate 67 66 71 Respiratory Rate 20 18 20 Blood Pressure 98/50 L 100/79 146/87 H Pulse Oximetry 98 97 96 10/08/20 08:16 Temperature Pulse Rate 71 Respiratory Rate Blood Pressure Pulse Oximetry Intake/Output Intake/Output: Intake & Output 10/05/20 10/06/20 10/07/20 10/08/20 23:59 23:59 23:59 23:59 Intake Total 50 1600 1180
--- NOTE | 2020-10-08 09:27 | WPDUROPN2 ---
Progress Note: A&P Assessment and Plan (1) Gross hematuria: Code(s): R31.0 - Gross hematuria Status: Acute Additional Plan Appears to be improving with minimal CBI. Wean to off as tolerated. Hemoglobin slightly decreased today. Question of whether this is dilutional. No mention of large clots in bladder on CT scan. Subjective Subjective Date/Time Seen: 10/08/20 09:27 Principal diagnosis: Gross hematuria Interval history: Urine is only faintly the pink on minimal CBI at this time. CT scan reveals no significant upper tract hydronephrosis or stones. He has a thickened bladder wall. There is no mention of clots in the bladder however his bladder does appear somewhat distended. Curious if the catheter was plugged during CT scan at that time. Review of Systems Review of Systems: ROS unobtainable: Yes unobtainable due to mental status Exam Const: General: cooperative and comfortable GI: GI Palp: Yes Soft to palpation Objective Data Vital Signs Vital Signs: Vital Signs - 24 hr 10/07/20 14:00 10/07/20 22:00 10/08/20 06:00 Temperature 36.4 C L 36.5 C 36.2 C L Pulse Rate 67 66 71 Respiratory Rate 20 18 20 Blood Pressure 98/50 L 100/79 146/87 H Pulse Oximetry 98 97 96 10/08/20 08:16 Temperature Pulse Rate 71 Respiratory Rate Blood Pressure Pulse Oximetry Intake/Output Intake/Output: Intake & Output 10/05/20 10/06/20 10/07/20 10/08/20 23:59 23:59 23:59 23:59 Intake Total 50 1600 1180 120 Output Total 1075 1850 800 Balance 50 630 -972 -613 Meds/Results Medications: Active Medications Generic Name Dose Route Start Last Admin Trade Name Freq PRN Reason Stop Dose Admin Artificial Tears 1 drop 10/06/20 21:00 10/07/20 20:35 Artificial Tears Op Soln 15 Ml Bottle EACH EYE 1 drop HS ELIA Administration Atorvastatin Calcium 20 mg 10/06/20 21:00 10/07/20 20:35 Atorvastatin 20 Mg Tablet PO 20 mg HS ELIA Administration Bisacodyl 5 mg 10/08/20 09:10 Bisacodyl 5 Mg Tablet Ec PO QAM ELIA Bupropion HCl 150 mg 10/06/20 09:00 11/26/20 08:16 Bupropion Hcl Sr (12hr) 150 Mg Tab PO 150 mg Q12HR ELIA Administration Dextrose 12.5 gm 10/05/20 16:35 Dextrose 50% 25 Gm/50 Ml Syringe IV PUSH PRN PRN Hypoglycemia Protocol Dorzolamide/Timolol 1 drop 10/06/20 09:00 10/08/20 08:16 Dorzolamide/Timolol Ophth Kenyatta 10 Ml Bottle EACH EYE 1 drop Q12HR ELIA Administration Glucagon 1 mg 10/05/20 16:35 Glucagon For Inj 1 Mg Vial IM PRN PRN Hypoglycemia Protocol Glucose 15 gm 10/05/20 16:35 Glucose Oral Gel 15 Gm Of Glucse In 37.5 Gm Tube PO PRN PRN Hypoglycemia Protocol Dextrose 1,000 mls @ 100 mls/hr 10/05/20 16:35 Dextrose 5% 1,000 Ml IVPB PRN PRN Hypoglycemia Protocol Insulin Aspart 2 - 5 units 10/05/20 17:00 10/08/20 08:14 Insulin Aspart (*Bkc) 100 Units/Ml SUB-Q Not Given TIDWM ELIA Protocol Melatonin 20 mg 10/06/20 21:00 10/07/20 20:35 Melatonin 5 Mg Tablet PO 20 mg HS ELIA Administration Metoprolol Succinate 25 mg 10/06/20 09:00 10/08/20 08:16 Metoprolol Succinate Ext Rel 25 Mg Tabcr PO 25 mg DAILY ELIA Administration Polyethylene Glycol 17 gm 10/08/20 09:15 Polyethylene Glycol 3350 17 Gm Powd.Pack PO QAM ELIA Tramadol HCl 50 mg 10/06/20 06:50 Tramadol Hcl (*Crx) 50 Mg Tablet PO Q6H PRN Pain Trazodone HCl 100 mg 10/06/20 21:00 10/07/20 20:35 Trazodone Hcl 50 Mg Tablet PO 100 mg HS ELIA Administration Labs Labs: Laboratory Results - last 24 hr 10/07/20 10/07/20 10/07/20 04:11 12:01 16:59 WBC RBC Hgb Hct MCV MCH MCHC RDW Plt Count MPV Sodium Potassium Chloride Carbon Dioxide Anion Gap BUN Creatinine Estim Creat Clear Calc Estimated GFR Glucose POC Capillary Glucose 158 H 134 H Calcium Total Biliru
[2020-10-08 11:34] LABS: Glucose Point of Care 180 (65-105)
[2020-10-08] MEDS: BISACODYL 5 MG TABLET EC PO (11:38)
[2020-10-08] MEDS: polyethylene glycoL 3350 17 GM POWD.PACK PO (11:38)
[2020-10-08 14:00] VITALS: BP 107/44; PULSE 69; RESP 15; TEMP 36.2; O2SAT 98
[2020-10-08 16:26] LABS: Glucose Point of Care 147 (65-105)
[2020-10-08] MEDS: MELATONIN 5 MG TABLET 20 MG PO (21:02)
[2020-10-08] MEDS: traZODone HCL 50 MG TABLET 100 MG PO (21:02)
[2020-10-08] MEDS: ATORVASTATIN 20 MG TABLET PO (21:02)
[2020-10-08 21:37] LABS: Glucose Point of Care 219 (65-105)
[2020-10-08 22:00] VITALS: BP 114/51; PULSE 74; RESP 16; TEMP 36.7; O2SAT 98
[2020-10-09 05:59] LABS: Hematocrit 31.7 % (42.0-52.0); Hemoglobin 10.1 g/dL (14.0-18.0)
[2020-10-09 06:00] VITALS: BP 117/54; PULSE 72; RESP 16; TEMP 36.7; O2SAT 97
[2020-10-09 06:15] LABS: Anion Gap 5 mmol/L (8-16); Blood Urea Nitrogen 48 mg/dL (9-20); Calcium 9.2 mg/dL (8.4-10.2); Carbon Dioxide 33 mmol/L (22-30); Chloride 99 mmol/L (98-107); Estimated CRCL calculation 18 ml/min; Estimated Glomerular Filt Rate 27; Glucose 127 mg/dL (75-110); Potassium 4.4 mmol/L (3.4-5.0); Sodium 137 mmol/L (137-145)
[2020-10-09 07:52] LABS: Glucose Point of Care 119 (65-105)
[2020-10-09 10:00] VITALS: PULSE 74
[2020-10-09] MEDS: METOPROLOL SUCCINATE EXT REL 25 MG TABCR PO (10:00)
[2020-10-09] MEDS: BISACODYL 5 MG TABLET EC PO (10:00)
[2020-10-09] MEDS: DORZOLAMIDE/TIMOLOL OPHTH SOL 10 ML BOTTLE 1 DROP EACH EYE ×2 (10:01→20:34)
[2020-10-09] MEDS: polyethylene glycoL 3350 17 GM POWD.PACK PO (10:01)
[2020-10-09 11:50] LABS: Glucose Point of Care 169 (65-105)
--- NOTE | 2020-10-09 13:12 | PM.IMPN ---
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 -Hold aspirin (2) History of prostate cancer: Code(s): Z85.46 - Personal history of malignant neoplasm of prostate Status: Acute Assessment and Plan: Hx of prostate cancer around 2007 with no known reoccurrence according to - treated with radiation (3) Transaminitis: Code(s): R74.0 - Nonspecific elevation of levels of transaminase and lactic acid dehydrogenase [LDH] Status: Acute Assessment and Plan: chronic - follow-up outpatient (4) Hypotension: Code(s): I95.9 - Hypotension, unspecified Status: Acute Assessment and Plan: noted on admission -resolved, IV fluids have been stopped (5) Type 2 diabetes mellitus: Qualifiers: Diabetes mellitus termite exterminator insulin use: without termite exterminator use Diabetes mellitus complication status: without complication Qualified Code(s): E11.9 - Type 2 diabetes mellitus without complications Code(s): E11.9 - Type 2 diabetes mellitus without complications Status: Acute Assessment and Plan: last glucose 169 - continue sliding scale insulin and hypoglycemia protocol (6) Atrial fibrillation: Qualifiers: Atrial fibrillation type: unspecified Qualified Code(s): I48.91 - Unspecified atrial fibrillation Code(s): I48.91 - Unspecified atrial fibrillation Status: Acute Assessment and Plan: chronic, normal sinus rhythm for me today -continue metoprolol -not on anticoagulation due to hematuria and falls (7) Dementia: Code(s): F03.90 - Unspecified dementia without behavioral disturbance Status: Acute Assessment and Plan: chronic - now lives in a correction, continue PT and OT -nurse reports the patient is choking with solids and liquids. Will do bedside speech therapy consult (8) Chronic kidney disease: Qualifiers: Chronic kidney disease stage: stage 3 (moderate) Qualified Code(s): N18.3 - Chronic kidney disease, stage 3 (moderate) Code(s): N18.9 - Chronic kidney disease, unspecified Status: Acute Assessment and Plan: Chronic and at baseline Subjective Date/time seen: 10/09/20 13:12 Interval history: Pt is a 85-year-old male here for hematuria. Patient was seen today and doing well. His only complaint today is that he has a sore throat. He specifically denies chest pain, shortness of breath, fevers, chills, abdominal pain, nausea, vomiting or leg swelling. Nurse reports that the CBI was turned off this morning at 6:30 a.m. but had to be restarted this afternoon. She also notes that he seems to choke with liquids and solids. Exam Narrative: Exam Narrative: General: frail elderly patient resting comfortably in bed in no acute distress HEENT: Normocephalic, atraumatic, chronic ocular changes in the right eye Neck: Supple Resp: CTA Heart: RRR Abd: Soft, nontender. No pain to palpation. Positive bowel sounds Skin: Warm and dry Extremities: No swelling, erythema or pain to palpation Neuro: Alert and Oriented to himself, location but not the year, president or where he lived--baseline. CN 2-12 intact. No focal neurological deficits. : Sandoval catheter with light pink urine and no clots seen Objective Data Vital Signs Vital Signs: Vital Signs - 24 hr 10/08/20 14:00 10/08/20 22:00 10/09/20 06:00 Temperature 97.1 F L 98.1 F 98.0 F Pulse Rate 69 74 72 Respiratory Rate 15 16 16 Blood Pressure 107/44 L 114/51 L 1
[2020-10-09 14:00] VITALS: BP 104/42; PULSE 110; RESP 16; TEMP 36.6; O2SAT 96
[2020-10-09 17:07] LABS: Glucose Point of Care 182 (65-105)
[2020-10-09] MEDS: ATORVASTATIN 20 MG TABLET PO (20:33)
[2020-10-09] MEDS: traZODone HCL 50 MG TABLET 100 MG PO (20:34)
[2020-10-09] MEDS: MELATONIN 5 MG TABLET 20 MG PO (20:37)
[2020-10-09 21:33] LABS: Glucose Point of Care 126 (65-105)
[2020-10-09 21:41] VITALS: BP 109/53; PULSE 88; RESP 16; TEMP 36.7; O2SAT 97
[2020-10-10 05:26] LABS: Hematocrit 31.4 % (42.0-52.0); Hemoglobin 10.2 g/dL (14.0-18.0)
[2020-10-10 05:42] LABS: Anion Gap 3 mmol/L (8-16); Blood Urea Nitrogen 46 mg/dL (9-20); Calcium 9.6 mg/dL (8.4-10.2); Carbon Dioxide 33 mmol/L (22-30); Chloride 101 mmol/L (98-107); Estimated CRCL calculation 20 ml/min; Estimated Glomerular Filt Rate 30; Glucose 125 mg/dL (75-110); Potassium 4.6 mmol/L (3.4-5.0); Sodium 137 mmol/L (137-145)
[2020-10-10 06:00] VITALS: BP 111/58; PULSE 82; RESP 14; TEMP 36.7; O2SAT 96
[2020-10-10 07:29] LABS: Glucose Point of Care 122 (65-105)
[2020-10-10 08:38] VITALS: PULSE 73
[2020-10-10] MEDS: DORZOLAMIDE/TIMOLOL OPHTH SOL 10 ML BOTTLE 1 DROP EACH EYE ×2 (08:38→19:40)
[2020-10-10] MEDS: METOPROLOL SUCCINATE EXT REL 25 MG TABCR PO (08:38)
[2020-10-10] MEDS: BISACODYL 5 MG TABLET EC PO (08:38)
[2020-10-10] MEDS: polyethylene glycoL 3350 17 GM POWD.PACK PO (08:39)
--- NOTE | 2020-10-10 08:42 | WPDUROPN2 ---
Progress Note: A&P Assessment and Plan (1) Gross hematuria: Code(s): R31.0 - Gross hematuria Status: Acute Additional Plan Simply need to continue with CBI and wean as tolerated to off. Now that aspirin is held may continue to improve. Hemodynamically stable with stable hemoglobin and hematocrit. No further in intervention at this point time. Subjective Subjective Date/Time Seen: 10/10/20 08:42 Principal diagnosis: Hematuria Interval history: Prior tends to wean CBI to off and been unsuccessful. His aspirin was stopped yesterday. Urine today is actually fairly clear with minimal CBI going. Unfortunately may just simply take more time for this to resolve. Review of Systems Review of Systems: All systems reviewed & are unremarkable except as noted in HPI and below Exam GI: Inspection: normal to inspection GI Palp: Yes Soft to palpation Objective Data Vital Signs Vital Signs: Vital Signs - 24 hr 10/09/20 10:00 10/09/20 14:00 10/09/20 21:41 Temperature 36.6 C 36.7 C Pulse Rate 74 110 H 88 Respiratory Rate 16 16 Blood Pressure 104/42 L 109/53 L Pulse Oximetry 96 97 10/10/20 06:00 10/10/20 08:38 Temperature 36.7 C Pulse Rate 82 73 Respiratory Rate 14 Blood Pressure 111/58 L Pulse Oximetry 96 Intake/Output Intake/Output: Intake & Output 10/07/20 10/08/20 10/09/20 10/10/20 23:59 23:59 23:59 23:59 Intake Total 1180 1200 850 50 Output Total 1850 2050 1775 1150 [facility] -360 [phone] Meds/Results Medications: Active Medications Generic Name Dose Route Start Last Admin Trade Name Freq PRN Reason Stop Dose Admin Artificial Tears 1 drop 10/06/20 21:00 10/09/20 20:33 Artificial Tears Op Soln 15 Ml Bottle EACH EYE 1 drop HS ELIA Administration Atorvastatin Calcium 20 mg 10/06/20 21:00 10/09/20 20:33 Atorvastatin 20 Mg Tablet PO 20 mg HS ELIA Administration Bisacodyl 5 mg 10/08/20 09:10 10/10/20 08:38 Bisacodyl 5 Mg Tablet Ec PO 5 mg QAM ELIA Administration Bupropion HCl 150 mg 10/06/20 09:00 10/10/20 08:38 Bupropion Hcl Sr (12hr) 150 Mg Tab PO 150 mg Q12HR ELIA Administration Dextrose 12.5 gm 10/05/20 16:35 Dextrose 50% 25 Gm/50 Ml Syringe IV PUSH PRN PRN Hypoglycemia Protocol Dorzolamide/Timolol 1 drop 10/06/20 09:00 10/10/20 08:38 Dorzolamide/Timolol Ophth Kenyatta 10 Ml Bottle EACH EYE 1 drop Q12HR ELIA Administration Glucagon 1 mg 10/05/20 16:35 Glucagon For Inj 1 Mg Vial IM PRN PRN Hypoglycemia Protocol Glucose 15 gm 10/05/20 16:35 Glucose Oral Gel 15 Gm Of Glucse In 37.5 Gm Tube PO PRN PRN Hypoglycemia Protocol Dextrose 1,000 mls @ 100 mls/hr 10/05/20 16:35 Dextrose 5% 1,000 Ml IVPB PRN PRN Hypoglycemia Protocol Insulin Aspart 2 - 5 units 10/05/20 17:00 10/10/20 08:34 Insulin Aspart (*Bkc) 100 Units/Ml SUB-Q Not Given TIDWM ELIA Protocol Melatonin 20 mg 10/06/20 21:00 10/09/20 20:37 Melatonin 5 Mg Tablet PO 20 mg HS ELIA Administration Metoprolol Succinate 25 mg 10/06/20 09:00 10/10/20 08:38 Metoprolol Succinate Ext Rel 25 Mg Tabcr PO 25 mg DAILY ELIA Administration Phenol 1 spray 10/09/20 11:06 Phenol/Sod Pheno [place] Dean (*Bkc) MUCOUS MEM PRN PRN Sore Throat Polyethylene Glycol 17 gm 10/08/20 09:15 10/10/20 08:39 Polyethylene Glycol 3350 17 Gm Powd.Pack PO 17 gm QAM ELIA Administration Tramadol HCl 50 mg 10/06/20 06:50 Tramadol Hcl (*Crx) 50 Mg Tablet PO Q6H PRN Pain Trazodone HCl 100 mg 10/06/20 21:00 10/09/20 20:34 Trazodone Hcl 50 Mg Tablet PO 100 mg HS ELIA Administration Radiology Results: ITS Impressions Abdomen/Pelvis CT 10/08/20 11:15 IMPRESSION: Diffuse thickening and urinary bladder wall; Sandoval catheter within bladder Bilateral renal cysts. Additional renal masses and/or cysts are suggested.. Further evaluation
--- NOTE | 2020-10-10 08:51 | PCSTNOTE ---
Bedside swallow evaluation complete. Please see ST evaluation for further details and recommendations.
--- NOTE | 2020-10-10 11:24 | PM.IMPN ---
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 -continue to hold aspirin -Urology consulted and their note has been reviewed (2) History of prostate cancer: Code(s): Z85.46 - Personal history of malignant neoplasm of prostate Status: Acute Assessment and Plan: Hx of prostate cancer around 2007 with no known reoccurrence according to - treated with radiation (3) Transaminitis: Code(s): R74.0 - Nonspecific elevation of levels of transaminase and lactic acid dehydrogenase [LDH] Status: Acute Assessment and Plan: chronic - follow-up outpatient (4) Hypotension: Code(s): I95.9 - Hypotension, unspecified Status: Acute Assessment and Plan: noted on admission -resolved, IV fluids have been stopped (5) Type 2 diabetes mellitus: Qualifiers: Diabetes mellitus snf insulin use: without terminal operations manager use Diabetes mellitus complication status: without complication Qualified Code(s): E11.9 - Type 2 diabetes mellitus without complications Code(s): E11.9 - Type 2 diabetes mellitus without complications Status: Acute Assessment and Plan: last glucose 122 - continue sliding scale insulin and hypoglycemia protocol (6) Atrial fibrillation: Qualifiers: Atrial fibrillation type: unspecified Qualified Code(s): I48.91 - Unspecified atrial fibrillation Code(s): I48.91 - Unspecified atrial fibrillation Status: Acute Assessment and Plan: chronic, normal sinus rhythm for me today -continue metoprolol -not on anticoagulation due to hematuria and falls (7) Dementia: Code(s): F03.90 - Unspecified dementia without behavioral disturbance Status: Acute Assessment and Plan: chronic - now lives in a residential, continue PT and OT -nurse reports the patient is choking with solids and liquids. ST recommends mild thick liquids and level [address] treatment. (8) Chronic kidney disease: Qualifiers: Chronic kidney disease stage: stage 3 (moderate) Qualified Code(s): N18.3 - Chronic kidney disease, stage 3 (moderate) Code(s): N18.9 - Chronic kidney disease, unspecified Status: Acute Assessment and Plan: Chronic and at baseline Subjective Date/time seen: 10/10/20 11:24 Interval history: Pt is a 85-year-old male here for hematuria. Patient was seen today and doing well and currently having a BM. He specifically denies chest pain, shortness of breath, fevers, chills, abdominal pain, nausea, vomiting or leg swelling. ST saw him and recommends thick liquids and level 6 diet. No complaints from the patient today and he was in good spirits Exam Narrative: Exam Narrative: General: frail elderly patient resting comfortably in bed in no acute distress HEENT: Normocephalic, atraumatic, chronic ocular changes in the right eye Neck: Supple Resp: CTA Heart: RRR Abd: Soft, nontender. No pain to palpation. Positive bowel sounds Skin: Warm and dry Extremities: No swelling, erythema or pain to palpation Neuro: Alert and Oriented to himself, location but not the year, president or where he lived--baseline. CN 2-12 intact. No focal neurological deficits. : Sandoval catheter with red urine Objective Data Vital Signs Vital Signs: Vital Signs - 24 hr 10/09/20 14:00 10/09/20 21:41 10/10/20 06:00 Temperature 98 F 98.1 F 98.0 F Pulse Rate 110 H 88 82 Respiratory Rate 16 16 14 Blood Pressure 104/42 L 109/53 L 111/58 L Pulse Oximetry 96 97 96 1
[2020-10-10 11:29] LABS: Glucose Point of Care 148 (65-105)
[2020-10-10 14:00] VITALS: BP 111/41; PULSE 82; RESP 16; TEMP 36.3; O2SAT 98
[2020-10-10 16:32] LABS: Glucose Point of Care 151 (65-105)
[2020-10-10] MEDS: MELATONIN 5 MG TABLET 20 MG PO (19:39)
[2020-10-10] MEDS: traZODone HCL 50 MG TABLET 100 MG PO (19:40)
[2020-10-10] MEDS: ATORVASTATIN 20 MG TABLET PO (19:40)
[2020-10-10 21:43] VITALS: BP 123/56; PULSE 55; RESP 16; TEMP 36.8; O2SAT 97
[2020-10-11 00:23] LABS: Glucose Point of Care 149 (65-105)
[2020-10-11 06:00] VITALS: BP 115/52; PULSE 65; RESP 14; TEMP 36.3; O2SAT 98
[2020-10-11 06:01] LABS: Hematocrit 32.7 % (42.0-52.0); Hemoglobin 10.5 g/dL (14.0-18.0)
[2020-10-11 06:15] LABS: Anion Gap 7 mmol/L (8-16); Blood Urea Nitrogen 47 mg/dL (9-20); Calcium 9.7 mg/dL (8.4-10.2); Carbon Dioxide 32 mmol/L (22-30); Chloride 103 mmol/L (98-107); Estimated CRCL calculation 17 ml/min; Estimated Glomerular Filt Rate 26; Glucose 126 mg/dL (75-110); Potassium 4.5 mmol/L (3.4-5.0); Sodium 142 mmol/L (137-145)
[2020-10-11 07:54] LABS: Glucose Point of Care 142 (65-105)
[2020-10-11 08:12] VITALS: PULSE 65
[2020-10-11] MEDS: METOPROLOL SUCCINATE EXT REL 25 MG TABCR PO (08:12)
[2020-10-11] MEDS: DORZOLAMIDE/TIMOLOL OPHTH SOL 10 ML BOTTLE 1 DROP EACH EYE ×2 (08:12→20:15)
[2020-10-11] MEDS: polyethylene glycoL 3350 17 GM POWD.PACK PO (08:12)
[2020-10-11] MEDS: BISACODYL 5 MG TABLET EC PO (08:12)
--- NOTE | 2020-10-11 11:08 | PM.IMPN ---
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 May need cystoscopy if fails CBI (2) History of prostate cancer: Code(s): Z85.46 - Personal history of malignant neoplasm of prostate Status: Acute Assessment and Plan: Hx of prostate cancer around 2007 with no known reoccurrence according to - treated with radiation (3) Transaminitis: Code(s): R74.0 - Nonspecific elevation of levels of transaminase and lactic acid dehydrogenase [LDH] Status: Acute Assessment and Plan: chronic - follow-up outpatient (4) Hypotension: Code(s): I95.9 - Hypotension, unspecified Status: Acute Assessment and Plan: noted on admission -resolved, IV fluids have been stopped (5) Type 2 diabetes mellitus: Qualifiers: Diabetes mellitus lobsterman insulin use: without senior living use Diabetes mellitus complication status: without complication Qualified Code(s): E11.9 - Type 2 diabetes mellitus without complications Code(s): E11.9 - Type 2 diabetes mellitus without complications Status: Acute Assessment and Plan: last glucose 142 - continue sliding scale insulin and hypoglycemia protocol (6) Atrial fibrillation: Qualifiers: Atrial fibrillation type: unspecified Qualified Code(s): I48.91 - Unspecified atrial fibrillation Code(s): I48.91 - Unspecified atrial fibrillation Status: Acute Assessment and Plan: chronic, normal sinus rhythm for me today -continue metoprolol -not on anticoagulation due to hematuria and falls (7) Dementia: Code(s): F03.90 - Unspecified dementia without behavioral disturbance Status: Acute Assessment and Plan: chronic - now lives in a residential, continue PT and OT -nurse reports the patient is choking with solids and liquids. ST recommends mild thick liquids and level [address] treatment. (8) Chronic kidney disease: Qualifiers: Chronic kidney disease stage: stage 3 (moderate) Qualified Code(s): N18.3 - Chronic kidney disease, stage 3 (moderate) Code(s): N18.9 - Chronic kidney disease, unspecified Status: Acute Assessment and Plan: Chronic and at baseline Subjective Date/time seen: 10/11/20 11:08 Interval history: Pt is a 85-year-old male here for hematuria. Patient was seen today and doing well with no complaints. He specifically denies chest pain, shortness of breath, fevers, chills, abdominal pain, nausea, vomiting or leg swelling. No reports overnight Exam Narrative: Exam Narrative: General: frail elderly patient resting comfortably in bed in no acute distress HEENT: Normocephalic, atraumatic, chronic ocular changes in the right eye Neck: Supple Resp: CTA Heart: RRR Abd: Soft, nontender. No pain to palpation. Positive bowel sounds Skin: Warm and dry Extremities: No swelling, erythema or pain to palpation Neuro: Alert and Oriented to himself, location but not the year, president or where he lived--baseline. CN 2-12 intact. No focal neurological deficits. : Sandoval catheter with red urine Objective Data Vital Signs Vital Signs: Vital Signs - 24 hr 10/10/20 14:00 10/10/20 21:43 10/11/20 06:00 Temperature 97.4 F L 98.3 F 97.3 F L Pulse Rate 82 55 L 65 Respiratory Rate 16 16 14 Blood Pressure 111/41 L 123/56 L 115/52 L Pulse Oximetry 98 97 98 10/11/20 08:12 Temperature Pulse Rate 65 Respiratory Rate Blood P
[2020-10-11 11:42] LABS: Glucose Point of Care 126 (65-105)
--- NOTE | 2020-10-11 11:53 | WPDUROPN2 ---
Progress Note: A&P Assessment and Plan (1) Gross hematuria: Code(s): R31.0 - Gross hematuria Status: Acute Additional Plan Does not appear significant given his stable hemoglobin. Very minimal CBI is required. We will re-evaluate over the next 24-48 hours. If it persists may consider cystoscopy possibly on Monday. Subjective Subjective Date/Time Seen: 10/11/20 11:53 Principal diagnosis: Hematuria Interval history: Urine still somewhat pink on minimal CBI. Hemoglobin however has been stable at 10.5. Aspirin has been stopped now for approximately 24 hours. Objective Data Vital Signs Vital Signs: Vital Signs - 24 hr 10/10/20 14:00 10/10/20 21:43 10/11/20 06:00 Temperature 36.3 C L 36.8 C 36.3 C L Pulse Rate 82 55 L 65 Respiratory Rate 16 16 14 Blood Pressure 111/41 L 123/56 L 115/52 L Pulse Oximetry 98 97 98 10/11/20 08:12 Temperature Pulse Rate 65 Respiratory Rate Blood Pressure Pulse Oximetry Intake/Output Intake/Output: Intake & Output 10/08/20 10/09/20 10/10/20 10/11/20 23:59 23:59 23:59 23:59 Intake Total 1200 850 650 390 Output Total 0 1774 3169 767 Balance -972 -929 -1425 -899 Meds/Results Medications: Active Medications Generic Name Dose Route Start Last Admin Trade Name Freq PRN Reason Stop Dose Admin Artificial Tears 1 drop 10/06/20 21:00 10/10/20 19:39 Artificial Tears Op Soln 15 Ml Bottle EACH EYE 1 drop HS ELIA Administration Atorvastatin Calcium 20 mg 10/06/20 21:00 10/10/20 19:40 Atorvastatin 20 Mg Tablet PO 20 mg HS ELIA Administration Bisacodyl 5 mg 10/08/20 09:10 10/11/20 08:12 Bisacodyl 5 Mg Tablet Ec PO 5 mg QAM ELIA Administration Bupropion HCl 150 mg 10/06/20 09:00 10/11/20 08:12 Bupropion Hcl Sr (12hr) 150 Mg Tab PO 150 mg Q12HR ELIA Administration Dextrose 12.5 gm 10/05/20 16:35 Dextrose 50% 25 Gm/50 Ml Syringe IV PUSH PRN PRN Hypoglycemia Protocol Dorzolamide/Timolol 1 drop 10/06/20 09:00 10/11/20 08:12 Dorzolamide/Timolol Ophth [place] 10 Ml Bottle EACH EYE 1 drop Q12HR ELIA Administration Glucagon 1 mg 10/05/20 16:35 Glucagon For Inj 1 Mg Vial IM PRN PRN Hypoglycemia Protocol Glucose 15 gm 10/05/20 16:35 Glucose Oral Gel 15 Gm Of Glucse In 37.5 Gm Tube PO PRN PRN Hypoglycemia Protocol Dextrose 1,000 mls @ 100 mls/hr 10/05/20 16:35 Dextrose 5% 1,000 Ml IVPB PRN PRN Hypoglycemia Protocol Insulin Aspart 2 - 5 units 10/05/20 17:00 10/11/20 11:45 Insulin Aspart (*Bkc) 100 Units/Ml SUB-Q Not Given TIDWM ELIA Protocol Melatonin 20 mg 10/06/20 21:00 10/10/20 19:39 Melatonin 5 Mg Tablet PO 20 mg HS ELIA Administration Metoprolol Succinate 25 mg 10/06/20 09:00 10/11/20 08:12 Metoprolol Succinate Ext Rel 25 Mg Tabcr PO 25 mg DAILY ELIA Administration Phenol 1 spray 10/09/20 11:06 Phenol/Sod Pheno [place] Dean (*Bkc) MUCOUS MEM PRN PRN Sore Throat Polyethylene Glycol 17 gm 10/08/20 09:15 10/11/20 08:12 Polyethylene Glycol 3350 17 Gm Powd.Pack PO 17 gm QAM ELIA Administration Tramadol HCl 50 mg 10/06/20 06:50 Tramadol Hcl (*Crx) 50 Mg Tablet PO Q6H PRN Pain Trazodone HCl 100 mg 10/06/20 21:00 10/10/20 19:40 Trazodone Hcl 50 Mg Tablet PO 100 mg HS ELIA Administration Radiology Results: ITS Impressions Abdomen/Pelvis CT 10/08/20 11:15 IMPRESSION: Diffuse thickening and urinary bladder wall; Sandoval catheter within bladder Bilateral renal cysts. Additional renal masses and/or cysts are suggested.. Further evaluation with IV contrast CT examination or MRI would be helpful for more definitive evaluation and to assess for exclusion of any lesion such as hypernephroma, given the history of hematuria Cholelithiasis Cardiomegaly Multiple fracture deformities of the lower thoracic and lumbar spine Multilevel degenerative
[2020-10-11 14:00] VITALS: BP 95/65; PULSE 82; RESP 16; TEMP 36.2; O2SAT 99
[2020-10-11 17:02] LABS: Glucose Point of Care 124 (65-105)
[2020-10-11] MEDS: MELATONIN 5 MG TABLET 20 MG PO (20:16)
[2020-10-11] MEDS: traZODone HCL 50 MG TABLET 100 MG PO (20:16)
[2020-10-11] MEDS: ATORVASTATIN 20 MG TABLET PO (20:17)
[2020-10-11 20:39] LABS: Glucose Point of Care 187 (65-105)
[2020-10-11 21:53] VITALS: BP 112/52; PULSE 72; RESP 16; TEMP 37; O2SAT 96
[2020-10-12 05:43] LABS: Hematocrit 31.5 % (42.0-52.0); Hemoglobin 10.1 g/dL (14.0-18.0)
[2020-10-12 06:00] VITALS: BP 130/63; PULSE 73; RESP 16; TEMP 36.6; O2SAT 98
[2020-10-12 08:27] VITALS: PULSE 68
[2020-10-12] MEDS: METOPROLOL SUCCINATE EXT REL 25 MG TABCR PO (08:27)
[2020-10-12] MEDS: DORZOLAMIDE/TIMOLOL OPHTH SOL 10 ML BOTTLE 1 DROP EACH EYE ×2 (08:27→20:10)
[2020-10-12] MEDS: polyethylene glycoL 3350 17 GM POWD.PACK PO (08:27)
[2020-10-12] MEDS: BISACODYL 5 MG TABLET EC PO (08:28)
[2020-10-12 08:33] LABS: Glucose Point of Care 118 (65-105)
--- NOTE | 2020-10-12 08:50 | WPDUROPN2 ---
Progress Note: A&P Assessment and Plan (1) Gross hematuria: Code(s): R31.0 - Gross hematuria Status: Acute Assessment and Plan: Keep NPO after midnight tonight. Will plan to go to the OR tomorrow: Cystoscopy with possible bladder fulgeration with Dr. Ayala. CBI is still running after attempts to clear urine for multiple days, when urine clears and CBI turns off, urine gets bloody again. Urine culture is negative, however he does have a history of radiation from prostate cancer which could be contributing. Subjective Subjective Date/Time Seen: 10/12/20 08:50 Continued Gross Hematuria despite several days of CBI. Review of Systems Review of Systems: ROS unobtainable: Yes unobtainable due to mental status Exam Resp: Effort & Inspection: normal respiratory effort Cardio: Rate: regular rate GI: GI Palp: Yes Soft to palpation and No Tenderness to palpation present (GI) Urinary Catheter: Urinary Catheter: patent and draining, urine clear and urine pink Extrem: General: no edema Objective Data Vital Signs Vital Signs: Vital Signs - 24 hr 10/11/20 14:00 10/11/20 21:53 10/12/20 06:00 Temperature 97.1 F L 98.6 F 97.9 F Pulse Rate 82 72 73 Respiratory Rate 16 16 16 Blood Pressure 95/65 L 112/52 L 130/63 Pulse Oximetry 99 96 98 10/12/20 08:27 Temperature Pulse Rate 68 Respiratory Rate Blood Pressure Pulse Oximetry Intake/Output Intake/Output: Intake & Output 10/09/20 10/10/20 10/11/20 10/12/20 23:59 23:59 23:59 23:59 Intake Total 850 650 870 50 Output Total 1779 2075 1550 700 [facility] -[phone] -[phone] Meds/Results Medications: Active Medications Generic Name Dose Route Start Last Admin Trade Name Freq PRN Reason Stop Dose Admin Artificial Tears 1 drop 10/06/20 21:00 10/11/20 20:15 Artificial Tears Op Soln 15 Ml Bottle EACH EYE 1 drop HS ELIA Administration Atorvastatin Calcium 20 mg 10/06/20 21:00 10/11/20 20:17 Atorvastatin 20 Mg Tablet PO 20 mg HS ELIA Administration Bisacodyl 5 mg 10/08/20 09:10 10/12/20 08:28 Bisacodyl 5 Mg Tablet Ec PO 5 mg QAM ELIA Administration Bupropion HCl 150 mg 10/06/20 09:00 10/12/20 08:27 Bupropion Hcl Sr (12hr) 150 Mg Tab PO 150 mg Q12HR ELIA Administration Dextrose 12.5 gm 10/05/20 16:35 Dextrose 50% 25 Gm/50 Ml Syringe IV PUSH PRN PRN Hypoglycemia Protocol Dorzolamide/Timolol 1 drop 10/06/20 09:00 10/12/20 08:27 Dorzolamide/Timolol Ophth [place] 10 Ml Bottle EACH EYE 1 drop Q12HR ELIA Administration Glucagon 1 mg 10/05/20 16:35 Glucagon For Inj 1 Mg Vial IM PRN PRN Hypoglycemia Protocol Glucose 15 gm 10/05/20 16:35 Glucose Oral Gel 15 Gm Of Glucse In 37.5 Gm Tube PO PRN PRN Hypoglycemia Protocol Dextrose 1,000 mls @ 100 mls/hr 10/05/20 16:35 Dextrose 5% 1,000 Ml IVPB PRN PRN Hypoglycemia Protocol Insulin Aspart 2 - 5 units 10/05/20 17:00 10/12/20 08:28 Insulin Aspart (*Bkc) 100 Units/Ml SUB-Q Not Given TIDWM ELIA Protocol Melatonin 20 mg 10/06/20 21:00 10/11/20 20:16 Melatonin 5 Mg Tablet PO 20 mg HS ELIA Administration Metoprolol Succinate 25 mg 10/06/20 09:00 10/12/20 08:27 Metoprolol Succinate Ext Rel 25 Mg Tabcr PO 25 mg DAILY ELIA Administration Phenol 1 spray 10/09/20 11:06 Phenol/Sod Pheno [place] Dean (*Bkc) MUCOUS MEM PRN PRN Sore Throat Polyethylene Glycol 17 gm 10/08/20 09:15 10/12/20 08:27 Polyethylene Glycol 3350 17 Gm Powd.Pack PO 17 gm QAM ELIA Administration Tramadol HCl 50 mg 10/06/20 06:50 Tramadol Hcl (*Crx) 50 Mg Tablet PO Q6H PRN Pain Trazodone HCl 100 mg 10/06/20 21:00 10/11/20 20:16 Trazodone Hcl 50 Mg Tablet PO 100 mg HS ELIA Administration Radiology Results: ITS Impressions Abdomen/Pelvis CT 10/08/20 11:15 IMPRESSION: Diffuse thickening and urinary bladder wall; Fo
[2020-10-12 11:39] LABS: Glucose Point of Care 155 (65-105)
--- NOTE | 2020-10-12 12:31 | PCNFU ---
Nutrition Follow-Up Complete: Inadequate Oral Intake as related to hematuria as evidenced by poor po intake. Goal: Meet estimated nutritional needs. Progressing towards goal. We will continue current goal. Pt current nutrition is Diabetic Consistent carb diet/soft bite sized, Level 6 with Mildly Thick liquids, Level 2. Last recorded weight is 58.6 kg, no new weight. Bowel Motility:+BM reported 10/09. Labs Reviewed: Hct 31.5,Hgb 10.1 Meds Noted:Miralax,Novolog,Toprol XL,Wellbutrin Additional Notes: Nutrition follow up. Patient has been eating, fair about 45-50% of trays. Glucerna shakes BID remain providing an additional 220 kcals and 10 gms protein. Plans for NPO after midnight for cystoscopy. Monitoring: Will monitor every 5 days.
--- NOTE | 2020-10-12 12:59 | PM.IMPN ---
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 -continue to hold aspirin (2) History of prostate cancer: Code(s): Z85.46 - Personal history of malignant neoplasm of prostate Status: Acute Assessment and Plan: Hx of prostate cancer around 2007 with no known reoccurrence according to - treated with radiation (3) Transaminitis: Code(s): R74.0 - Nonspecific elevation of levels of transaminase and lactic acid dehydrogenase [LDH] Status: Acute Assessment and Plan: chronic - follow-up outpatient (4) Hypotension: Code(s): I95.9 - Hypotension, unspecified Status: Acute Assessment and Plan: noted on admission -resolved, IV fluids have been stopped (5) Type 2 diabetes mellitus: Qualifiers: Diabetes mellitus longterm insulin use: without intermodal dispatcher use Diabetes mellitus complication status: without complication Qualified Code(s): E11.9 - Type 2 diabetes mellitus without complications Code(s): E11.9 - Type 2 diabetes mellitus without complications Status: Acute Assessment and Plan: last glucose 155 - continue sliding scale insulin and hypoglycemia protocol (6) Atrial fibrillation: Qualifiers: Atrial fibrillation type: unspecified Qualified Code(s): I48.91 - Unspecified atrial fibrillation Code(s): I48.91 - Unspecified atrial fibrillation Status: Acute Assessment and Plan: chronic, normal sinus rhythm for me today -continue metoprolol -not on anticoagulation due to hematuria and falls (7) Dementia: Code(s): F03.90 - Unspecified dementia without behavioral disturbance Status: Acute Assessment and Plan: chronic - now lives in a snf, continue PT and OT -nurse reports the patient is choking with solids and liquids. ST recommends mild thick liquids and level [address] treatment. (8) Chronic kidney disease: Qualifiers: Chronic kidney disease stage: stage 3 (moderate) Qualified Code(s): N18.3 - Chronic kidney disease, stage 3 (moderate) Code(s): N18.9 - Chronic kidney disease, unspecified Status: Acute Assessment and Plan: Chronic and at baseline Subjective Date/time seen: 10/12/20 12:59 Interval history: Pt is a 85-year-old male here for hematuria. Patient was seen today and doing well with no complaints. He specifically denies chest pain, shortness of breath, fevers, chills, abdominal pain, nausea, vomiting or leg swelling. No reports overnight. Nursing staff states he is eating and drinking well Exam Narrative: Exam Narrative: General: frail elderly patient resting comfortably in bed in no acute distress HEENT: Normocephalic, atraumatic, chronic ocular changes in the right eye Neck: Supple Resp: CTA Heart: RRR Abd: Soft, nontender. No pain to palpation. Positive bowel sounds Skin: Warm and dry Extremities: No swelling, erythema or pain to palpation Neuro: Alert and Oriented to himself, location but not the year, president or where he lived--baseline. CN 2-12 intact. No focal neurological deficits. : Sandoval catheter with light [place] urine with no clots noted. CBI running Objective Data Vital Signs Vital Signs: Vital Signs - 24 hr 10/11/20 14:00 10/11/20 21:53 10/12/20 06:00 Temperature 97.1 F L 98.6 F 97.9 F Pulse Rate 82 72 73 Respira
--- NOTE | 2020-10-12 13:15 | PC.NURSE ---
called and updated her on plan of care and pt condition, obtained telephone consent for cystoscopy 10/13/2020 due to pt cognitive status
[2020-10-12 14:00] VITALS: BP 113/50; PULSE 73; RESP 12; TEMP 36.3; O2SAT 98
[2020-10-12 16:55] LABS: Glucose Point of Care 140 (65-105)
[2020-10-12] MEDS: traZODone HCL 50 MG TABLET 100 MG PO (20:10)
[2020-10-12] MEDS: MELATONIN 5 MG TABLET 20 MG PO (20:10)
[2020-10-12] MEDS: ATORVASTATIN 20 MG TABLET PO (20:10)
[2020-10-12] MEDS: PHENOL/SOD PHENO SPRAY CHERRY (*BKC) 1 SPRAY MUCOUS MEM (20:16)
[2020-10-12 20:35] LABS: Glucose Point of Care 150 (65-105)
[2020-10-12 22:00] VITALS: BP 125/59; PULSE 110; RESP 18; TEMP 36.4; O2SAT 95
[2020-10-13] VITALS (14 sets, daily range): BP systolic 117–166; BP diastolic 52–87; PULSE 51–97; RESP 12–23; TEMP 35.6–36.7; O2SAT 92–100
[2020-10-13 05:42] LABS: Hematocrit 32.8 % (42.0-52.0); Hemoglobin 10.5 g/dL (14.0-18.0)
[2020-10-13 05:57] LABS: Anion Gap 5 mmol/L (8-16); Blood Urea Nitrogen 47 mg/dL (9-20); Calcium 10.1 mg/dL (8.4-10.2); Carbon Dioxide 33 mmol/L (22-30); Chloride 99 mmol/L (98-107); Estimated CRCL calculation 16 ml/min; Estimated Glomerular Filt Rate 24; Glucose 104 mg/dL (75-110); Potassium 4.4 mmol/L (3.4-5.0); Sodium 137 mmol/L (137-145)
[2020-10-13] MEDS: METOPROLOL SUCCINATE EXT REL 25 MG TABCR PO (08:20)
[2020-10-13 08:44] LABS: Glucose Point of Care 128 (65-105)
--- NOTE | 2020-10-13 09:55 | PM.IMPN ---
Progress Note: A&P Assessment and Plan (1) Hematuria: Code(s): R31.9 - Hematuria, unspecified Status: Acute Assessment and Plan: Hematuria noted at senior living x [address] abd/pelvis was reviewed. Urology is following and will defer the need for further imaging to urology. Will discuss with them. He does not typically have a cardona catheter prior to admission. He has been on CBI intermittently but hematuria returns when CBI is stopped. 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 ASA is in hold. Urine culture was negative for UTI so antibiotics were discontinued. He will undergo cystoscopy per urology today. Await urology recommendations to determine if he will need cardona at discharge. (2) History of prostate cancer: Code(s): Z85.46 - Personal history of malignant neoplasm of prostate Status: Acute Assessment and Plan: Pt has a hx of prostate cancer around 2007 with no known reoccurrence according to . He was treated with radiation. Urology is following and further input is appreciated. (3) Transaminitis: Code(s): R74.0 - Nonspecific elevation of levels of transaminase and lactic acid dehydrogenase [LDH] Status: Acute Assessment and Plan: Chronic. Resolved. LFTs normalized on labs 10/08. Continue outpatient follow-up. (4) Hypotension: Code(s): I95.9 - Hypotension, unspecified Status: Resolved Assessment and Plan: Noted on admission and resolved. (5) Type 2 diabetes mellitus: Qualifiers: Diabetes mellitus complication status: without complication Diabetes mellitus blood bank laboratory professional insulin use: without blood bank laboratory professional use Qualified Code(s): E11.9 - Type 2 diabetes mellitus without complications Code(s): E11.9 - Type 2 diabetes mellitus without complications Status: Acute Assessment and Plan: Blood sugars are well-controlled. Hold glimepiride since he is inpatient. Continue ACHS glucose monitoring, sliding scale insulin, and hypoglycemia protocol. (6) Atrial fibrillation: Qualifiers: Atrial fibrillation type: unspecified Qualified Code(s): I48.91 - Unspecified atrial fibrillation Code(s): I48.91 - Unspecified atrial fibrillation Status: Chronic Assessment and Plan: Chronic. He is in sinus rhythm today. Continue metoprolol. He is not on anticoagulation due to hematuria and falls. (7) Dementia: Code(s): F03.90 - Unspecified dementia without behavioral disturbance Status: Chronic Assessment and Plan: Chronic. He lives in a senior living. Continue PT and OT. The RN reported that the patient is choking with solids and liquids. ST recommends mild thick liquids and level [address] treatment. (8) Chronic kidney disease: Qualifiers: Chronic kidney disease stage: stage 3 (moderate) Qualified Code(s): N18.3 - Chronic kidney disease, stage 3 (moderate) Code(s): N18.9 - Chronic kidney disease, unspecified Status: Chronic Assessment and Plan: Chronic and at baseline. Cr has increased mildly to 2.6. Will give gentle IV fluids and monitor closely. Avoid nephrotoxins and renally dose medications. Subjective Date/time seen: 10/13/20 09:55 Mr. Christianson is an 85 y.o. male with PMH significant for prostate cancer, T2DM, atrial fibrillation and not on anticoagulation, CKD, CAD, CVA, dementia, HLD, and HTN who is seen in follow-up for hematuria. He will undergo cystoscopy today. No acute events reported overnight. He reports chronic low back pain but has no other complaints. He is not having any abdominal or flank pain. He denies nausea and vomiting. He reports that he is eating well. He denies cough, shortness of breath, and chest pain. He denies subjective fever and chills. He has no urinary symptoms. Cardona is in place. Hx is limited given his dementia. Review of Systems Review of Systems: All sys
[2020-10-13] MEDS: SODIUM CHLORIDE 0.9% IV 1,000 ML 65 ML IV CONT (10:28)
--- NOTE | 2020-10-13 11:39 | PCSTNOTE ---
The patient treatment was not able to be completed on 10/13/20 due to NPO for procedure today and patient had a dry mouth, he indicated. He indicated that he either was unable to or did not want to participate in therapy tasks today. Will plan to continue treatment per plan of care tomorrow.
[2020-10-13 12:07] LABS: Glucose Point of Care 130 (65-105)
--- NOTE | 2020-10-13 13:22 | WPDHPUPDATE1 ---
History and Physical Update Update Date/Time: 10/13/20 13:22 History and Physical has been reviewed, including an updated exam of the patient. There are NO changes in the patient's condition. Risks, benefits, and alternatives have been discussed and questions answered. Patient agrees to proceed with procedure. proceed with cysto , possible fulguration
[2020-10-13] MEDS: LACTATED RINGERS 1,000 ML 30 ML IV CONT (14:18)
--- NOTE | 2020-10-13 14:22 | WPDANESEPPF ---
Anes - Initial Pre Proc Eval Procedure: Operation Date: 10/13/20 13:30 Proposed Procedures p Cystoscopy, Possible Bladder Fulguration - Jorge Ayala MD Date/Time: 10/13/20 14:22 Surgeon: Tarsha Brewster PA-C Pre Op Diagnosis: hematuria Patient Data Age: 85 Gender: M Height: 6 ft 1 in Weight: 58.6 kg Last Vital Signs Temp 36.7 C 10/13/20 05:35 Pulse 87 10/13/20 08:20 Resp 18 10/13/20 05:35 BP 117/52 L 10/13/20 05:35 Pulse Ox 98 10/13/20 05:35 Allergies Allergy/AdvReac Type Severity Reaction Status Date / Time Penicillins Allergy Unknown Verified 10/05/20 17:50 Home Medications Medication Instructions Recorded Confirmed Type Centrum Silver Ultra Men's 1 tablet PO DAILY 11/25/19 10/05/20 History aspirin 81 mg PO DAILY 11/25/19 10/05/20 History atorvastatin 20 mg PO HS 11/25/19 10/05/20 History bupropion HCl 150 mg PO BID 11/25/19 10/05/20 History dorzolamide-timolol [Cosopt] 1 drp OPHTHALMIC (EYE) BID 11/25/19 10/05/20 History tramadol 50 mg PO Q6H PRN 11/25/19 10/05/20 History trazodone 100 mg PO HS 11/25/19 10/05/20 History melatonin 20 mg PO HS 08/21/20 10/05/20 History ciprofloxacin HCl [Cipro] 500 mg PO Q12H 10/05/20 10/05/20 History glimepiride 0.5 mg PO BID 10/05/20 10/05/20 History metoprolol succinate 25 mg PO DAILY 10/05/20 10/05/20 History peg 400-propylene glycol [Systane 1 drp OPHTHALMIC (EYE) HS 10/05/20 10/05/20 History (propylene glycol)] Laboratory Tests 10/12/20 10/12/20 10/13/20 16:54 20:09 05:20 Hgb 10.5 g/dL L g/dL (14.0-18.0) Hct 32.8 % L % (42.0-52.0) Sodium Potassium Chloride Carbon Dioxide Anion Gap BUN Creatinine Estim Creat Clear Calc Estimated GFR Glucose POC Capillary Glucose 140 mg/dl H mg/dl 150 mg/dl H mg/dl (65-105) (65-105) Calcium 10/13/20 10/13/20 10/13/20 05:20 08:19 12:05 Hgb Hct Sodium 137 mmol/L mmol/L (137-145) Potassium 4.4 mmol/L mmol/L (3.4-5.0) Chloride 99 mmol/L mmol/L (98-107) Carbon Dioxide 33 mmol/L H mmol/L (22-30) Anion Gap 5 mmol/L L mmol/L (8-16) BUN 47 mg/dL H mg/dL (9-20) Creatinine 2.60 mg/dL H mg/dL (0.7-1.3) Estim Creat Clear Calc 16 ml/min ml/min Estimated GFR 24 L (59 - ) Glucose 104 mg/dL mg/dL (75-110) POC Capillary Glucose 128 mg/dl H mg/dl 130 mg/dl H mg/dl (65-105) (65-105) Calcium 10.1 mg/dL mg/dL (8.4-10.2) Patient hx anesthesia problems: none Family hx anesthesia problems: none [facility] Past Medical History Medical History Anxiety Atrial fibrillation no longer on anticoagulation due to falls and hematuria Chronic kidney disease Coronary artery disease Status post stent and 3 vessel CABG. CVA (cerebrovascular accident) 2000. 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 Osteoarthritis Pneumonia Prostate cancer 2007. Status post radiation. Pulmonary hypertension Type 2 diabetes mellitus Surgical History Surgical History History of coronary artery bypass graft x 3 2000. Status post abdominal aortic aneurysm repair Status post appendectomy Status post tonsillectomy Family History Family History Father Acute myocardial infarction Congestive heart failure Mother Cerebrovascular accident Social History Social History Social History: The patient lives at a [facility] in [place]. He designates his , Jazmyn, as his surrogate decision maker. Former smoker Smoking packs per day:
[2020-10-13] MEDS: LIDOCAINE HCL 2% GEL UROJET 10 ML PKG MUCOUS MEM (15:19)
--- NOTE | 2020-10-13 15:32 | PM.PROC ---
Procedure Note - Detailed Date of procedure: 10/13/20 Pre-op diagnosis: hematuria Post-op diagnosis: same Procedure performed: Cysto with transurethral resection of prostate/bladder neck with fulguration Description of procedure: Patient is taken the operative suite and correctly identified. Once anesthesia was obtained was placed in dorsal lithotomy position and prepped draped usual sterile fashion. Twenty-two Nepalese scope was inserted in the bladder. There are no urethral strictures noted. Prostate has some mild lateral lobe hypertrophy as well as a slightly elevated median bar. He has significant irregularity at the bladder neck area circumferentially. No other tumors were noted. He had a small amount of clot present which we evacuated. The scope was then exchanged out for a 24 Nepalese resectoscope sheath. We resected the bladder neck area circumferentially taking down some of the median bar prostatic tissue as well. This is sent for pathologic review. We then fulgurated the area using a ball. There appeared to be good hemostasis at termination of procedure. 2% viscous lidocaine was inserted urethra to [address] was placed with 20 cc in the balloon. This was connected to continuous bladder irrigation the patient is taken recovery room stable condition. Anesthesia: GLMA Surgeon: Jorge Ayala MD Drains: Yes Packing: No Pathology: yes Complications: No immediate complications Condition: stable Disposition: PACU
[2020-10-13 16:03] LABS: Glucose Point of Care 114 (65-105)
--- NOTE | 2020-10-13 16:26 | SUR.PHASEI ---
1625 10/13/2020. IN PACU I EMPTIED [address] REPLACED 1 3000 ML BAG.
[2020-10-13] MEDS: MELATONIN 5 MG TABLET 20 MG PO (21:32)
[2020-10-13] MEDS: ATORVASTATIN 20 MG TABLET PO (21:33)
[2020-10-13] MEDS: DORZOLAMIDE/TIMOLOL OPHTH SOL 10 ML BOTTLE 1 DROP EACH EYE (21:33)
[2020-10-13] MEDS: traZODone HCL 50 MG TABLET 100 MG PO (21:33)
[2020-10-13 22:19] LABS: Glucose Point of Care 168 (65-105)
[2020-10-14 02:00] VITALS: BP 149/60; PULSE 78; RESP 18; TEMP 36.2; O2SAT 92
[2020-10-14 05:50] LABS: Hematocrit 31.5 % (42.0-52.0); Hemoglobin 10.2 g/dL (14.0-18.0)
[2020-10-14 06:07] LABS: Anion Gap 8 mmol/L (8-16); Blood Urea Nitrogen 50 mg/dL (9-20); Calcium 9.8 mg/dL (8.4-10.2); Carbon Dioxide 31 mmol/L (22-30); Chloride 100 mmol/L (98-107); Estimated CRCL calculation 18 ml/min; Estimated Glomerular Filt Rate 27; Glucose 142 mg/dL (75-110); Potassium 4.7 mmol/L (3.4-5.0); Sodium 139 mmol/L (137-145)
[2020-10-14 07:45] LABS: Glucose Point of Care 123 (65-105)
[2020-10-14 10:00] VITALS: BP 131/61; PULSE 68; PULSE 87; RESP 18; TEMP 36.4; O2SAT 97
[2020-10-14] MEDS: METOPROLOL SUCCINATE EXT REL 25 MG TABCR PO (10:00)
[2020-10-14] MEDS: DORZOLAMIDE/TIMOLOL OPHTH SOL 10 ML BOTTLE 1 DROP EACH EYE ×2 (10:00→21:01)
[2020-10-14] MEDS: polyethylene glycoL 3350 17 GM POWD.PACK PO (10:01)
[2020-10-14] MEDS: BISACODYL 5 MG TABLET EC PO (10:01)
--- NOTE | 2020-10-14 11:21 | WPDANESPN ---
Anes - Prog Note Post-Op Date/Time: 10/14/20 11:21 Cardiovascular status: normal Respiratory status: normal Airway patency: baseline Mental status: baseline Post-Op hydration status: normal Vital Signs: Last Vital Signs Temp 36.4 C 10/14/20 10:00 Pulse 68 10/14/20 10:00 Resp 18 10/14/20 10:00 BP 131/61 10/14/20 10:00 Pulse Ox 97 10/14/20 10:00 Pain Score (VAS): pt confused at baseline I/O: Intake & Output 10/13/20 10/14/20 10/14/20 23:59 07:59 15:59 Intake Total 200 1000 50 Output Total 4275 5452 Balance -5310 -7577 50 Laboratory Tests 10/14/20 05:20 10/14/20 05:20 10/13/20 10/13/20 10/13/20 12:05 16:01 21:31 Hgb Hct Sodium Potassium Chloride Carbon Dioxide Anion Gap BUN Creatinine Estim Creat Clear Calc Estimated GFR Glucose POC Capillary Glucose 130 H 114 H 168 H Calcium 10/14/20 10/14/20 10/14/20 05:20 05:20 07:41 Hgb 10.2 L Hct 31.5 L Sodium 139 Potassium 4.7 Chloride 100 Carbon Dioxide 31 H Anion Gap 8 BUN 50 H Creatinine 2.30 H Estim Creat Clear Calc 18 Estimated GFR 27 L Glucose 142 H POC Capillary Glucose 123 H Calcium 9.8 Post-procedural complaints: none Patient Feedback: Patient satisfied with anesthetic care.
--- NOTE | 2020-10-14 11:47 | PM.IMPN ---
Progress Note: A&P Assessment and Plan (1) Hematuria: Code(s): R31.9 - Hematuria, unspecified Status: Acute Assessment and Plan: Hematuria noted at retirement x [address] abd/pelvis was reviewed. Urology is following and I discussed the CT findings with them today. We will order renal US for further evaluation given concern for possible renal mass on CT. He underwent cystoscopy 10/13/[address] Ayala which demonstrated irregularity of the bladder neck and prostate hypertrophy and he underwent transurethral resection of the prostate and bladder neck with fulguration which was sent for pathological review. ASA is on hold pending further urology recommendations. Urine culture was negative for UTI so antibiotics were discontinued. Await urology recommendations. Pathology is pending. Urine is clearer today and appears hematuria has resolved. Discussed with urology and will plan for voiding trial tomorrow if urine remains clear. Continue to monitor H&H which is stable. (2) History of prostate cancer: Code(s): Z85.46 - Personal history of malignant neoplasm of prostate Status: Acute Assessment and Plan: Pt has a hx of prostate cancer around 2007 with no known reoccurrence according to . He was treated with radiation. Urology is following and further input is appreciated. He underwent TURP of the median bar of the prostatic tissue with pathology pending. Management per urology. (3) Transaminitis: Code(s): R74.0 - Nonspecific elevation of levels of transaminase and lactic acid dehydrogenase [LDH] Status: Acute Assessment and Plan: Chronic. Resolved. LFTs normalized on labs 10/08. Continue outpatient follow-up. (4) Hypotension: Code(s): I95.9 - Hypotension, unspecified Status: Resolved Assessment and Plan: Noted on admission and resolved. (5) Type 2 diabetes mellitus: Qualifiers: Diabetes mellitus intermodal dispatcher insulin use: without nursing home use Diabetes mellitus complication status: without complication Qualified Code(s): E11.9 - Type 2 diabetes mellitus without complications Code(s): E11.9 - Type 2 diabetes mellitus without complications Status: Acute Assessment and Plan: Blood sugars are well-controlled. Hold glimepiride since he is inpatient. Continue ACHS glucose monitoring, sliding scale insulin, and hypoglycemia protocol. (6) Atrial fibrillation: Qualifiers: Atrial fibrillation type: unspecified Qualified Code(s): I48.91 - Unspecified atrial fibrillation Code(s): I48.91 - Unspecified atrial fibrillation Status: Chronic Assessment and Plan: Chronic. He is in sinus rhythm today. Continue metoprolol. He is not on anticoagulation due to hematuria and falls. (7) Dementia: Code(s): F03.90 - Unspecified dementia without behavioral disturbance Status: Chronic Assessment and Plan: Chronic. He lives in a retirement. Continue PT and OT. The RN reported that the patient is choking with solids and liquids. ST recommends mild thick liquids and level 6 diet. He has expressed that he does not want to do speech therapy. (8) Chronic kidney disease: Qualifiers: Chronic kidney disease stage: stage 3 (moderate) Qualified Code(s): N18.3 - Chronic kidney disease, stage 3 (moderate) Code(s): N18.9 - Chronic kidney disease, unspecified Status: Chronic Assessment and Plan: Chronic and at baseline. Cr increased mildly to 2.6 yesterday. He was given gentle IV fluids and Cr has improved to 2.3 today. Discontinue IV fluids since he is tolerating PO intake well. Avoid nephrotoxins and renally dose medications. Subjective Date/time seen: 10/14/20 11:47 Mr. Christianson is an 85 y.o. male with PMH significant for prostate cancer, T2DM, atrial fibrillation and not on anticoagulation, CKD, CAD, CVA, dementia, HLD, and HTN who is seen in
[2020-10-14 11:53] LABS: Glucose Point of Care 125 (65-105)
[2020-10-14 14:00] VITALS: BP 102/52; PULSE 60; RESP 16; TEMP 36.6; O2SAT 96
--- NOTE | 2020-10-14 15:25 | PCSTNOTE ---
The patient treatment was not able to be completed on 10/14/20 due to patient refusal today. Therapist entered room and the patient asked me to help him with something. After that, I introduced myself and reminded him that I do Speech Therapy and patient closed eyes and dropped his head as if he were sleeping. He then did not complete any exercises at my request. A COPY READER entered room and told him to work with me and the patient shook his head no. Because this was two days of refusal and poor participation the day before that, Direct Speech Therapy is being discontinue. Therapist called and left voicemail for Dr. Willingham concerning discharge.
--- NOTE | 2020-10-14 15:29 | WPDUROPN2 ---
Progress Note: A&P Assessment and Plan (1) Gross hematuria: Code(s): R31.0 - Gross hematuria Status: Acute Assessment and Plan: Plan to keep CBI off unless urine would become bloody again, then restart. If he stays off CBI overnight and urine remains clear in the morning, we will remove cardona and do a voiding trial. If he is able to empty we can send home to [place] at anytime after that. Subjective Subjective Date/Time Seen: 10/14/20 15:29 POD #1 Cystoscopy with bladder fulgeration. Patient doing well, urine is clear off CBI. Review of Systems Cardiovascular: Cardiovascular: Denies chest pain Respiratory: Respiratory: Denies no additional respiratory complaints Gastrointestinal: Gastrointestinal: Denies abdominal pain, Denies nausea and Denies vomiting Genitourinary: Genitourinary: Denies hematuria Exam Resp: Effort & Inspection: normal respiratory effort Cardio: Rate: regular rate GI: GI Palp: Yes Soft to palpation and No Tenderness to palpation present (GI) : General: Yes no CVA tenderness Urinary Catheter: Urinary Catheter: patent and draining and urine clear Extrem: General: no edema Objective Data Vital Signs Vital Signs: Vital Signs - 24 hr 10/13/20 15:44 10/13/20 15:59 10/13/20 16:00 Temperature 97.2 F L Pulse Rate 64 67 69 Respiratory Rate 12 12 12 Blood Pressure 136/69 153/68 H 166/87 H Pulse Oximetry 97 100 100 10/13/20 16:15 10/13/20 16:24 10/13/20 16:40 Temperature 96.8 F L Pulse Rate 65 71 53 L Respiratory Rate 19 23 H 14 Blood Pressure 135/83 143/85 H 147/79 H Pulse Oximetry 98 100 100 10/13/20 16:55 10/13/20 17:25 10/13/20 18:25 Temperature 96.1 F L 96.1 F L 96.4 F L Pulse Rate 52 L 69 51 L Respiratory Rate 16 14 16 Blood Pressure 160/62 H 156/79 H 127/64 Pulse Oximetry 98 99 100 10/13/20 20:00 10/13/20 22:25 10/14/20 02:00 Temperature 97.6 F 97.1 F L Pulse Rate 78 78 78 Respiratory Rate 18 18 18 Blood Pressure 139/84 149/60 H Pulse Oximetry 92 92 92 10/14/20 10:00 10/14/20 14:00 Temperature 97.6 F 97.8 F Pulse Rate 68 60 Respiratory Rate 18 16 Blood Pressure 131/61 102/52 L Pulse Oximetry 97 96 Intake/Output Intake/Output: Intake & Output 10/11/20 10/12/20 10/13/20 10/14/20 23:59 23:59 23:59 23:59 Intake Total 870 260 499 7929 Output Total 1550 2162 9355 6251 [facility] [phone] Meds/Results Medications: Active Medications Generic Name Dose Route Start Last Admin Trade Name Freq PRN Reason Stop Dose Admin Artificial Tears 1 drop 10/06/20 21:00 10/13/20 21:33 Artificial Tears Op Soln 15 Ml Bottle EACH EYE 1 drop HS ELIA Administration Atorvastatin Calcium 20 mg 10/06/20 21:00 10/13/20 21:33 Atorvastatin 20 Mg Tablet PO 20 mg HS ELIA Administration Bisacodyl 5 mg 10/08/20 09:10 10/14/20 10:01 Bisacodyl 5 Mg Tablet Ec PO 5 mg QAM ELIA Administration Bupropion HCl 150 mg 10/06/20 09:00 10/14/20 10:00 Bupropion Hcl Sr (12hr) 150 Mg Tab PO 150 mg Q12HR ELIA Administration Dextrose 12.5 gm 10/05/20 16:35 Dextrose 50% 25 Gm/50 Ml Syringe IV PUSH PRN PRN Hypoglycemia Protocol Dorzolamide/Timolol 1 drop 10/06/20 09:00 10/14/20 10:00 Dorzolamide/Timolol Ophth Kenyatta 10 Ml Bottle EACH EYE 1 drop Q12HR ELIA Administration Fentanyl Citrate 5 mcg 10/13/20 14:42 Fentanyl Citrate Inj (*Crx) 100 Mcg/2 Ml Vial IV PUSH Q2M PRN Pain Glucagon 1 mg 10/05/20 16:35 Glucagon For Inj 1 Mg Vial IM PRN PRN Hypoglycemia Protocol Glucose 15 gm 10/05/20 16:35 Glucose Oral Gel 15 Gm Of Glucse In 37.5 Gm Tube PO PRN PRN Hypoglycemia Protocol Dextrose 1,000 mls @ 100 mls/hr 10/05/20 16:35 Dextrose 5% 1,000 Ml IVPB PRN PRN Hypoglycemia Protocol Insulin Aspart 2 - 5 units 10/05/20 17:00 10/14/20 12:06 Insulin Aspart (*Bkc) 100 Units/Ml SUB-Q Not Given TIDWM ELIA Prot
[2020-10-14 16:46] LABS: Glucose Point of Care 118 (65-105)
[2020-10-14 18:00] VITALS: BP 108/50; PULSE 61; RESP 18; TEMP 36.3; O2SAT 98
[2020-10-14 20:00] VITALS: BP 114/38; PULSE 52; RESP 18; TEMP 36.2; O2SAT 100
[2020-10-14] MEDS: traZODone HCL 50 MG TABLET 100 MG PO (21:01)
[2020-10-14] MEDS: ATORVASTATIN 20 MG TABLET PO (21:01)
[2020-10-14] MEDS: MELATONIN 5 MG TABLET 20 MG PO (21:03)
[2020-10-14 21:25] LABS: Glucose Point of Care 157 (65-105)
[2020-10-15] VITALS (7 sets, daily range): BP systolic 93–133; BP diastolic 40–64; PULSE 52–73; RESP 16–24; TEMP 35.8–36.6; O2SAT 95–100
[2020-10-15 05:42] LABS: Hemoglobin 9.8 g/dL (14.0-18.0)
[2020-10-15 07:47] LABS: Anion Gap 5 mmol/L (8-16); Blood Urea Nitrogen 50 mg/dL (9-20); Calcium 9.8 mg/dL (8.4-10.2); Carbon Dioxide 33 mmol/L (22-30); Chloride 101 mmol/L (98-107); Estimated CRCL calculation 19 ml/min; Estimated Glomerular Filt Rate 29; Glucose 116 mg/dL (75-110); Potassium 4.6 mmol/L (3.4-5.0); Sodium 139 mmol/L (137-145)
[2020-10-15 08:03] LABS: Glucose Point of Care 103 (65-105)
[2020-10-15] MEDS: METOPROLOL SUCCINATE EXT REL 25 MG TABCR PO (08:24)
[2020-10-15] MEDS: polyethylene glycoL 3350 17 GM POWD.PACK PO (08:26)
[2020-10-15] MEDS: BISACODYL 5 MG TABLET EC PO (08:26)
[2020-10-15] MEDS: DORZOLAMIDE/TIMOLOL OPHTH SOL 10 ML BOTTLE 1 DROP EACH EYE ×2 (08:26→20:10)
--- NOTE | 2020-10-15 08:57 | WPDUROPN2 ---
Progress Note: A&P Assessment and Plan (1) Gross hematuria: Code(s): R31.0 - Gross hematuria Status: Acute Assessment and Plan: Resolved. Will remove cardona and do a voiding trial today. If able to urinate, ok to send to [place] without cardona if bladder scan is <250cc. If in retention, may place a 16fr coude catheter and send back to [place] with monthly cath changes. (2) History of prostate cancer: Code(s): Z85.46 - Personal history of malignant neoplasm of prostate Status: Acute Assessment and Plan: Unsure if radiation cystitis caused gross hematuria, however his bladder tissue appeared friable during his cystoscopy. Subjective Subjective Date/Time Seen: 10/15/20 08:57 POD #2 Cystoscopy with bladder fulgeration. Doing well, no hematuria in two days, off CBI for >36 hours. Review of Systems Cardiovascular: Cardiovascular: Denies chest pain Respiratory: Respiratory: Reports no additional respiratory complaints Gastrointestinal: Gastrointestinal: Denies abdominal pain, Denies nausea and Denies vomiting Genitourinary: Genitourinary: Denies hematuria Exam Resp: Effort & Inspection: normal respiratory effort Cardio: Rate: regular rate GI: GI Palp: Yes Soft to palpation and No Tenderness to palpation present (GI) Urinary Catheter: Urinary Catheter: patent and draining and urine clear Extrem: General: no edema Objective Data Vital Signs Vital Signs: Vital Signs - 24 hr 10/14/20 10:00 10/14/20 14:00 10/14/20 18:00 Temperature 97.6 F 97.8 F 97.4 F L Pulse Rate 68 60 61 Respiratory Rate 18 16 18 Blood Pressure 131/61 102/52 L 108/50 L Pulse Oximetry 97 96 98 10/14/20 20:00 10/15/20 02:00 10/15/20 04:00 Temperature 97.1 F L 97.1 F L 97.6 F Pulse Rate 52 L 73 63 Respiratory Rate 18 20 20 Blood Pressure 114/38 L 93/40 L 127/61 Pulse Oximetry 100 95 98 10/15/20 08:24 Temperature Pulse Rate 62 Respiratory Rate Blood Pressure Pulse Oximetry Intake/Output Intake/Output: Intake & Output 10/12/20 10/13/20 10/14/20 10/15/20 23:59 23:59 23:59 23:59 Intake Total 612 896 8547 10 Output Total 1400 4275 6700 400 [facility] -[phone] -[phone] -390 Meds/Results Medications: Active Medications Generic Name Dose Route Start Last Admin Trade Name Freq PRN Reason Stop Dose Admin Artificial Tears 1 drop 10/06/20 21:00 10/14/20 21:03 Artificial Tears Op Soln 15 Ml Bottle EACH EYE 1 drop HS ELIA Administration Atorvastatin Calcium 20 mg 10/06/20 21:00 10/14/20 21:01 Atorvastatin 20 Mg Tablet PO 20 mg HS ELIA Administration Bisacodyl 5 mg 10/08/20 09:10 10/15/20 08:26 Bisacodyl 5 Mg Tablet Ec PO 5 mg QAM ELIA Administration Bupropion HCl 150 mg 10/06/20 09:00 10/15/20 08:24 Bupropion Hcl Sr (12hr) 150 Mg Tab PO 150 mg Q12HR ELIA Administration Dextrose 12.5 gm 10/05/20 16:35 Dextrose 50% 25 Gm/50 Ml Syringe IV PUSH PRN PRN Hypoglycemia Protocol Dorzolamide/Timolol 1 drop 10/06/20 09:00 10/15/20 08:26 Dorzolamide/Timolol Ophth Kenyatta 10 Ml Bottle EACH EYE 1 drop Q12HR ELIA Administration Fentanyl Citrate 5 mcg 10/13/20 14:42 Fentanyl Citrate Inj (*Crx) 100 Mcg/2 Ml Vial IV PUSH Q2M PRN Pain Glucagon 1 mg 10/05/20 16:35 Glucagon For Inj 1 Mg Vial IM PRN PRN Hypoglycemia Protocol Glucose 15 gm 10/05/20 16:35 Glucose Oral Gel 15 Gm Of Glucse In 37.5 Gm Tube PO PRN PRN Hypoglycemia Protocol Dextrose 1,000 mls @ 100 mls/hr 10/05/20 16:35 Dextrose 5% 1,000 Ml IVPB PRN PRN Hypoglycemia Protocol Insulin Aspart 2 - 5 units 10/05/20 17:00 10/15/20 08:23 Insulin Aspart (*Bkc) 100 Units/Ml SUB-Q Not Given TIDWM ELIA Protocol Melatonin 20 mg 10/06/20 21:00 10/14/20 21:03 Melatonin 5 Mg Tablet PO 20 mg HS ELIA Administration Metoprolol Succinate 25 mg 10/06/20 09:00 10/15/20 08:24 Metoprolol Tellez
[2020-10-15 11:36] LABS: Glucose Point of Care 146 (65-105)
--- NOTE | 2020-10-15 15:24 | PM.DS ---
DS: Admitting Diagnosis Admitting Diagnosis Admitting Diagnosis: hematuria DS: Discharge Diagnosis Discharge Diagnosis (1) Gross hematuria: Code(s): R31.0 - Gross hematuria Status: Acute Assessment and Plan: See discharge summary below. (2) History of prostate cancer: Code(s): Z85.46 - Personal history of malignant neoplasm of prostate Status: Acute Assessment and Plan: Pt has a hx of prostate cancer around 2007 with no known reoccurrence according to . He was treated with radiation. Urology was following. He underwent TURP of the median bar of the prostatic tissue with pathology showing no evidence of neoplasm. (3) Transaminitis: Code(s): R74.0 - Nonspecific elevation of levels of transaminase and lactic acid dehydrogenase [LDH] Status: Acute Assessment and Plan: Chronic. Resolved. LFTs normalized on labs 10/08. Continue outpatient follow-up. (4) Type 2 diabetes mellitus: Qualifiers: Diabetes mellitus senior care insulin use: without termite helper use Diabetes mellitus complication status: without complication Qualified Code(s): E11.9 - Type 2 diabetes mellitus without complications Code(s): E11.9 - Type 2 diabetes mellitus without complications Status: Acute Assessment and Plan: Blood sugars are well-controlled. Glimepiride was resumed at discharge. (5) Atrial fibrillation: Qualifiers: Atrial fibrillation type: unspecified Qualified Code(s): I48.91 - Unspecified atrial fibrillation Code(s): I48.91 - Unspecified atrial fibrillation Status: Chronic Assessment and Plan: Chronic. Metoprolol was continued. He is not on anticoagulation due to hematuria and falls. (6) Dementia: Code(s): F03.90 - Unspecified dementia without behavioral disturbance Status: Chronic Assessment and Plan: Chronic. [facility] [place]. The RN reported that the patient exhibited choking with solids and liquids. ST recommends mild thick liquids and level 6 diet. He has expressed that he does not want to do speech therapy. (7) Chronic kidney disease: Qualifiers: Chronic kidney disease stage: stage 3 (moderate) Qualified Code(s): N18.3 - Chronic kidney disease, stage 3 (moderate) Code(s): N18.9 - Chronic kidney disease, unspecified Status: Chronic Assessment and Plan: Chronic and at baseline. Cr increased mildly to 2.6 but improved to 2.2 the day of discharge. DS: Summary Hospital Course Reason for hospitalization: Hematuria Hospital Course: Mr. Christianson is an 85 y.o. male with PMH significant for prostate cancer, T2DM, atrial fibrillation (not on anticoagulation), CKD, CAD, CVA, dementia, HLD, and HTN who presented to the emergency department 10/05/20 from the urology office for the evaluation of hematuria. [facility] and was treated with ciprofloxacin since 09/29/20 due to concern for UTI but hematuria persisted and he was encouraged to proceed to the ED from the urology office given gross hematuria after straight cath there. He was admitted to the hospitalist service for hematuria and urology was consulted. A 3-way cardona catheter was placed for continuous bladder irrigation and he was treated with IV ceftriaxone due to concern for UTI based on UA performed at the urology office prior to admission. Urine culture was subsequently negative so IV ceftriaxone was discontinued. He did have a hx of radiation due to prostate cancer so radiation cystitis was considered. CT abd/pelvis was performed and showed 2 cm exophytic right renal cyst, 3.2 cm exophytic left renal cyst, 1.6 cm hypoattenuating lesion is suggested in the anterior aspect of the upper pole of the left kidney, and 10 mm lateral upper pole right renal lesion. These findings were discussed with urology who recommended renal US which was performed and showed benign cysts. He will
--- NOTE | 2020-10-15 15:37 | PCDIET ---
Nutrition Follow-Up Complete: Inadequate Oral Intake as related to hematuria as evidenced by poor po intake. Meet estimated nutritional needs. Goal: Goal not met. Continue goal. Pt current nutrition is Diabetic, Soft and Bite Sized level 6 with Glucerna BID Nutrition recommendation: agree Last recorded weight is 58.6 kg, recommend updated wt Bowel Motility: Sep Labs Reviewed:GFR 29, BUN 50, Cr 2.20, Glucose 116, Hgb/Hct 9.8, 31.0 Meds Noted: Lipitor, Melatonin, Miralax, Wellbutrin, Dulcolax Additional Notes: Pt has only consumed 12% over the last 5 meals. Pt is full assist with meals. Per RN, pt is very tired and no appetite and confused. Glucerna provided BID. Glucerna includes low glycemic carbohydrates to help minimize blood sugar spikes and provides 180 kcal, 10g protein, 16g CHO, and 26 vitamins and minerals per 8oz serving. Recommend providing Glucerna with pills and continuing with feeding assistance. Pt did eat 1/2 oatmeal and eggs today. We will continue to monitor every five days for adequate intake.
[2020-10-15 16:57] LABS: Glucose Point of Care 114 (65-105)
[2020-10-15 18:30] LABS: SARS-CoV-2 RNA PCR Negative
[2020-10-15] MEDS: MELATONIN 5 MG TABLET 20 MG PO (20:10)
[2020-10-15] MEDS: ATORVASTATIN 20 MG TABLET PO (20:10)
[2020-10-15] MEDS: traZODone HCL 50 MG TABLET 100 MG PO (20:10)
[2020-10-15 20:43] LABS: Glucose Point of Care 199 (65-105)
[2020-10-16] VITALS: BP 101/63; PULSE 67; RESP 20; TEMP 36.6; O2SAT 95
== END 2020-10-16 02:30 | DRG 666 ==
LOC: ANHED 15:04 → ANH2MED 16:36
PROVIDERS: Emergency Medicine; Family Medicine; Internal Medicine; Physician Assistant; Urology; Admitting Provider Student in an Organized Health Care Education/Training Program; Emergency Provider Emergency Medicine; PCP Family Medicine; Visit Provider Physician Assistant
PROC: 0TBB8ZX Excision of Bladder, Via Natural or Artificial Opening Endoscopic, Diagnostic (ICD-10-PCS; CPT 52204; principal; 2020-10-13 13:30)
DX: N30.91 Cystitis, unspecified with hematuria (principal); I48.20 Chronic atrial fibrillation, unspecified; R31.0 Gross hematuria; N34.2 Other urethritis; N40.0 Benign prostatic hyperplasia without lower urinary tract symptoms; I27.20 Pulmonary hypertension, unspecified; I95.9 Hypotension, unspecified; Z20.828 Contact with and (suspected) exposure to other viral communicable diseases; Z85.46 Personal history of malignant neoplasm of prostate; Z92.3 Personal history of irradiation; E11.22 Type 2 diabetes mellitus with diabetic chronic kidney disease; I12.9 Hypertensive chronic kidney disease with stage 1 through stage 4 chronic kidney disease, or unspecified chronic kidney disease; N18.30 Chronic kidney disease, stage 3 unspecified; E78.5 Hyperlipidemia, unspecified; R74.01 Elevation of levels of liver transaminase levels; R74.02 Elevation of levels of lactic acid dehydrogenase [LDH]; F03.90 Unspecified dementia, unspecified severity, without behavioral disturbance, psychotic disturbance, mood disturbance, and anxiety; I25.10 Atherosclerotic heart disease of native coronary artery without angina pectoris; M19.90 Unspecified osteoarthritis, unspecified site; H35.30 Unspecified macular degeneration; H40.9 Unspecified glaucoma; Z79.82 Long term (current) use of aspirin; Z79.899 Other long term (current) drug therapy; Z86.73 Personal history of transient ischemic attack (TIA), and cerebral infarction without residual deficits; Z87.891 Personal history of nicotine dependence; Z88.0 Allergy status to penicillin; Z91.81 History of falling; Z95.1 Presence of aortocoronary bypass graft; Z95.5 Presence of coronary angioplasty implant and graft
CPT/HCPCS: 36415; 74176; 76775; 80048; 80053; 81001; 85014; 85018; 85025; 85027; 85610; 85730; 86850; 86900; 86901; 87086; 87635; 88305; 92526; 92610; 96374; 97110; 97163; 97165; 97530; 99285; A9270; C9803; G0378; J0690; J0696; J1100; J2405; J2704; J3010; J7030; J7120; U0003